=== PATIENT | female | born 1965 | race Caucasian/White ===

== ENCOUNTER 2016-09-18 17:00 | Outpatient (CLI) | payer OTHER, BC | END 2016-09-18 17:01 | disposition home or self-care (01) | DX: R53.83 Other fatigue (principal) ==

== ENCOUNTER 2016-11-05 14:28 | Outpatient (CLI) | payer OTHER, BC | END 2016-11-05 23:59 | DX: D51.9 Vitamin B12 deficiency anemia, unspecified (principal) ==

== ENCOUNTER 2016-11-29 10:50 | Outpatient (CLI) | payer OTHER, BC | END 2016-11-29 10:51 | disposition home or self-care (01) | DX: R53.83 Other fatigue (principal); D51.9 Vitamin B12 deficiency anemia, unspecified ==

== ENCOUNTER 2017-01-08 09:27 | Outpatient (CLI) | payer OTHER, BC | END 2017-01-08 09:28 | disposition home or self-care (01) | LOC: SC 09:27 | PROVIDERS: ATTEND Specialist | DX: G47.10 Hypersomnia, unspecified (principal); R06.83 Snoring; R53.83 Other fatigue; G47.00 Insomnia, unspecified | CPT/HCPCS: 99205; 99212 ==

== ENCOUNTER 2017-02-13 21:25 | Outpatient (CLI) | payer OTHER, BC | END 2017-02-13 21:26 | disposition home or self-care (01) | LOC: SC 21:25 | PROVIDERS: ATTEND Specialist | DX: G47.33 Obstructive sleep apnea (adult) (pediatric) (principal) | CPT/HCPCS: 95810 ==

== ENCOUNTER 2017-02-26 08:52 | Outpatient (CLI) | payer OTHER, BC | END 2017-02-26 08:53 | disposition home or self-care (01) | LOC: SC 08:52 | PROVIDERS: ATTEND Nurse Practitioner Family | DX: G47.33 Obstructive sleep apnea (adult) (pediatric) (principal) | CPT/HCPCS: 99212; 99214 ==

== ENCOUNTER 2017-03-28 22:05 | Outpatient (CLI) | payer OTHER, BC | END 2017-03-28 22:06 | disposition home or self-care (01) | LOC: SC 22:05 | PROVIDERS: ATTEND Specialist | DX: G47.33 Obstructive sleep apnea (adult) (pediatric) (principal) | CPT/HCPCS: 95811 ==

== ENCOUNTER 2017-04-03 10:20 | Outpatient (CLI) | payer OTHER, BC | END 2017-04-03 10:21 | disposition home or self-care (01) | LOC: SC 10:20 | PROVIDERS: ATTEND Nurse Practitioner Family | DX: G47.33 Obstructive sleep apnea (adult) (pediatric) (principal) | CPT/HCPCS: 99212; 99214 ==

== ENCOUNTER 2017-05-15 10:33 | Outpatient (CLI) | payer OTHER, BC | END 2017-05-15 10:34 | disposition home or self-care (01) | LOC: SC 10:33 | PROVIDERS: ATTEND Nurse Practitioner Family | DX: G47.33 Obstructive sleep apnea (adult) (pediatric) (principal) | CPT/HCPCS: 99212; 99214 ==

== ENCOUNTER 2017-06-25 09:57 | Outpatient (CLI) | payer OTHER, BC | END 2017-06-25 09:58 | disposition home or self-care (01) | LOC: SC 09:57 | PROVIDERS: ATTEND Nurse Practitioner Family | DX: G47.33 Obstructive sleep apnea (adult) (pediatric) (principal) | CPT/HCPCS: 99212; 99214 ==

== ENCOUNTER 2017-08-01 10:40 | Outpatient (CLI) | payer OTHER, BC | END 2017-08-01 10:41 | disposition home or self-care (01) | LOC: SC 10:40 | PROVIDERS: ATTEND Nurse Practitioner Family | DX: G47.33 Obstructive sleep apnea (adult) (pediatric) (principal) | CPT/HCPCS: 99212; 99214 ==

== ENCOUNTER 2017-08-14 08:00 | Outpatient (CLI) | payer OTHER, BC ==
[2017-08-14 19:27] LABS: ALBUMIN 4.5 g/dL (3.2-5.5); ALBUMIN/GLOBULIN RATIO 1.5 (1.0-2.2); ALKALINE PHOSPHATASE 64 IU/L (42-121); ALT ALANINE AMINOTRANSFERASE 57 IU/L (10-60); AST ASPARTATE AMINOTRANSFERASE 50 IU/L (10-42); BILIRUBIN,TOTAL 0.5 mg/dL (0.2-1.0); BUN - BLOOD UREA NITROGEN 18 mg/dL (6-20); CALCIUM 9.5 mg/dL (8.5-10.3); CARBON DIOXIDE - CO2 25 mmol/L (21-32); CHLORIDE 104 mmol/L (101-111); CHOL/HDL RATIO 5.2 (<4.4); CHOLESTEROL 192 mg/dL; CREATININE 0.8 mg/dL (0.4-1.0); GFR - MDRD 75 (>89); GLUCOSE 104 mg/dL (70-100); HDL CHOLESTEROL 37 mg/dL; LDL CHOLESTEROL,CALCULATED 109 mg/dL; LDL/HDL RATIO 2.9 (<4.4); SODIUM 137 mmol/L (135-145); TOTAL PROTEIN 7.5 g/dL (6.7-8.2); VLDL CHOLESTEROL 46 mg/dL
[2017-08-14 19:33] LABS: BASOPHILS # (AUTO) 0.1 10^3/uL (0.0-0.1); BASOPHILS % (AUTO) 1.2 %; EOSINOPHILS # (AUTO) 0.2 10^3/uL (0.0-0.7); EOSINOPHILS % (AUTO) 4.1 %; HGB - HEMOGLOBIN 14.7 g/dL (12.0-16.0); LYMPHOCYTES # (AUTO) 1.8 10^3/uL (1.5-3.5); LYMPHOCYTES % (AUTO) 35.5 %; MEAN CORPUSCULAR HEMOGLOBIN 30.5 pg (27.0-31.0); MEAN CORPUSCULAR HGB CONC 32.9 g/dL (32.0-36.0); MEAN CORPUSCULAR VOLUME 92.8 fL (81.0-99.0); MEAN PLATELET VOLUME 8.1 fL (7.9-10.8); MONOCYTES # (AUTO) 0.3 10^3/uL (0.0-1.0); MONOCYTES % (AUTO) 5.8 %; NEUTROPHILS # (AUTO) 2.7 10^3/uL (1.5-6.6); NEUTROPHILS % (AUTO) 53.4 %; PLT - PLATELET COUNT 241 10^3/uL (130-450); RED BLOOD COUNT 4.81 10^6/uL (4.20-5.40); RED CELL DISTRIBUTION WIDTH 13.4 % (12.0-15.0)
== END 2017-08-14 08:01 | disposition home or self-care (01) ==
LOC: LAB.WCP 08:00
PROVIDERS: ATTEND Physician Assistant Medical
DX: Z00.00 Encounter for general adult medical examination without abnormal findings (principal)
CPT/HCPCS: 36415; 80053; 80061; 83721; 84443; 85025

== ENCOUNTER 2017-11-07 08:52 | Outpatient (CLI) | payer OTHER, BC | END 2017-11-07 08:53 | disposition home or self-care (01) | LOC: SC 08:52 | PROVIDERS: ATTEND Nurse Practitioner Family | DX: G47.33 Obstructive sleep apnea (adult) (pediatric) (principal) | CPT/HCPCS: 99212; 99214 ==

== ENCOUNTER 2017-12-03 15:08 | Outpatient (CLI) | payer OTHER, BC ==
[2017-12-03 16:00] LABS: BASOPHILS # (AUTO) 0.1 10^3/uL (0.0-0.1); BASOPHILS % (AUTO) 1.1 %; EOSINOPHILS # (AUTO) 0.1 10^3/uL (0.0-0.7); EOSINOPHILS % (AUTO) 2.2 %; HGB - HEMOGLOBIN 14.7 g/dL (12.0-16.0); LYMPHOCYTES # (AUTO) 1.9 10^3/uL (1.5-3.5); LYMPHOCYTES % (AUTO) 31.8 %; MEAN CORPUSCULAR HEMOGLOBIN 30.7 pg (27.0-31.0); MEAN CORPUSCULAR HGB CONC 34.1 g/dL (32.0-36.0); MEAN CORPUSCULAR VOLUME 90.1 fL (81.0-99.0); MEAN PLATELET VOLUME 7.4 fL (7.9-10.8); MONOCYTES # (AUTO) 0.4 10^3/uL (0.0-1.0); NEUTROPHILS # (AUTO) 3.5 10^3/uL (1.5-6.6); NEUTROPHILS % (AUTO) 58.9 %; PLT - PLATELET COUNT 215 10^3/uL (130-450); RED BLOOD COUNT 4.79 10^6/uL (4.20-5.40); RED CELL DISTRIBUTION WIDTH 13.2 % (12.0-15.0)
[2017-12-03 16:08] LABS: ALBUMIN 4.5 g/dL (3.2-5.5); ALBUMIN/GLOBULIN RATIO 1.6 (1.0-2.2); BILIRUBIN,TOTAL 1.2 mg/dL (0.2-1.0); CALCIUM 9.3 mg/dL (8.5-10.3); CREATININE 0.8 mg/dL (0.4-1.0); TOTAL PROTEIN 7.3 g/dL (6.7-8.2)
--- NOTE | 2017-12-03 16:52 | CT Report ---
CT ABDOMEN AND PELVIS WITHOUT CONTRAST: 12/03/2017 CLINICAL INDICATION: Abdominal pain. TECHNIQUE: Axial CT images of the abdomen and pelvis were obtained without oral or intravenous contrast. COMPARISON: No previous CT is available. FINDINGS: Limited evaluation of the lung bases is unremarkable. ABDOMEN: The right kidney demonstrates a 4 mm calculus in the lower pole daniel. Mild hydronephrosis is present. The left kidney is unremarkable. The liver, spleen, pancreas and adrenal glands are unremarkable. The gallbladder is nondilated. No bowel dilatation, free gas, or free fluid is present. No abdominal adenopathy is seen. PELVIS: There is a 5 mm calcification in the expected course of the distal right ureter. No pelvic adenopathy or free fluid is present. The appendix is seen in the right lower quadrant, and is normal in caliber. Osseous structures demonstrate degenerative changes. IMPRESSION: A 5 MM CALCULUS IN THE DISTAL RIGHT URETER, WITH MILD HYDRONEPHROSIS, 4 MM CALCULUS IN THE RIGHT COLLECTING SYSTEM. NORMAL APPENDIX. CT DOSE REDUCTION STATEMENT In accordance with CT protocol optimization, one or more of the following dose reduction techniques were utilized for this exam: automated exposure control, adjustment of mA and/or KV based on patient size, or use of iterative reconstructive technique. TD: 12/03/2017 16:51
== END 2017-12-03 15:09 | disposition home or self-care (01) ==
LOC: DI 15:08
PROVIDERS: ATTEND Physician Assistant Medical
DX: N20.0 Calculus of kidney (principal); R10.9 Unspecified abdominal pain; E03.9 Hypothyroidism, unspecified
CPT/HCPCS: 36415; 74176; 80053; 84443; 85025

== ENCOUNTER 2018-02-13 17:30 | Outpatient (CLI) | payer OTHER, BC ==
[2018-02-13 17:56] LABS: CALCIUM 9.2 mg/dL (8.5-10.3); CREATININE 0.7 mg/dL (0.4-1.0)
== END 2018-02-13 17:31 | disposition home or self-care (01) ==
LOC: LAB 17:30
PROVIDERS: ATTEND Family Medicine
DX: N20.0 Calculus of kidney (principal)
CPT/HCPCS: 36415; 80048

== ENCOUNTER 2018-03-04 11:42 | Emergency (ER) | payer OTHER, BC ==
[2018-03-04 13:22] LABS: BILIRUBIN,URINE NEGATIVE (NEGATIVE); GLUCOSE, URINE (UA) NEGATIVE (NEGATIVE); KETONES,URINE (UA) NEGATIVE (NEGATIVE); LEUKOCYTE ESTERASE, URINE TRACE (NEGATIVE); NITRITE,URINE NEGATIVE (NEGATIVE); OCCULT BLOOD,URINE LARGE (NEGATIVE); PROTEIN,URINE 100 mg/dL (NEGATIVE); UROBILINOGEN,URINE 0.2 (NORMAL) E.U./dL (NORMAL)
[2018-03-04 13:34] LABS: CLARITY,URINE CLOUDY (CLEAR)
[2018-03-04 13:35] LABS: RBC,URINE TNTC /HPF (0-5); SQUAMOUS EPITHELIAL CELL,UR NONE SEEN (<= Few)
[2018-03-04 13:36] LABS: BACTERIA,URINE None Seen /HPF (None Seen)
[2018-03-04 14:04] LABS: BASOPHILS # (AUTO) 0.1 10^3/uL (0.0-0.1); BASOPHILS % (AUTO) 0.9 %; EOSINOPHILS % (AUTO) 0.2 %; HGB - HEMOGLOBIN 15.3 g/dL (12.0-16.0); LYMPHOCYTES # (AUTO) 2.2 10^3/uL (1.5-3.5); LYMPHOCYTES % (AUTO) 23.1 %; MEAN CORPUSCULAR HEMOGLOBIN 31.4 pg (27.0-31.0); MEAN CORPUSCULAR HGB CONC 34.6 g/dL (32.0-36.0); MEAN CORPUSCULAR VOLUME 90.9 fL (81.0-99.0); MEAN PLATELET VOLUME 7.3 fL (7.9-10.8); MONOCYTES # (AUTO) 0.6 10^3/uL (0.0-1.0); MONOCYTES % (AUTO) 6.1 %; NEUTROPHILS # (AUTO) 6.8 10^3/uL (1.5-6.6); NEUTROPHILS % (AUTO) 69.7 %; PLT - PLATELET COUNT 241 10^3/uL (130-450); RED BLOOD COUNT 4.87 10^6/uL (4.20-5.40); RED CELL DISTRIBUTION WIDTH 13.6 % (12.0-15.0); WHITE BLOOD COUNT 9.7 x10^3/uL (4.8-10.8)
--- NOTE | 2018-03-04 14:45 | ED Physician Documentation ---
PD HPI ABD PAIN - Stated complaint Stated Complaint: FEVER/SHAKE/CHILLS/POST OP - Chief complaint Chief Complaint: Abd Pain - History obtained from History obtained from: Patient - History of Present Illness Timing - onset: Last night (she had lithotripsy with stent placement and stone retrieval yesterday. Had some pain after. Having feeling of chills overnight and this morning, temp 99.9 earlier this morning. Called Urology office and referred to the ER.) Timing - duration: Hours Timing - details: Abrupt onset, Still present (still some feeling of chills) Quality: Cramping, Aching Location: RLQ Radiation: Right flank Associated symptoms: Fever, Nausea, Hematuria. No: Vomiting, Diarrhea, Dysuria Recently seen: Surgery (see above) Review of Systems Constitutional: reports: Fever, Chills, Myalgias Nose: denies: Rhinorrhea / runny nose, Congestion Throat: denies: Sore throat Respiratory: denies: Cough GI: reports: Nausea. denies: Vomiting, Diarrhea : reports: Hematuria. denies: Dysuria Skin: denies: Rash Neurologic: denies: Generalized weakness, Near syncope PD PAST MEDICAL HISTORY - Past Medical History Cardiovascular: None Respiratory: None Neuro: None Endocrine/Autoimmune: None : Kidney stones - Present Medications Home Medications: Ambulatory Orders Medication Instructions Recorded Confirmed Albuterol 03/04/18 Azelastine/Fluticasone [Dymista 03/04/[address] [place]] Cephalexin [Keflex] 500 mg PO QID #24 capsule 03/04/18 Epinephrine [Epipen 2-Kel] 03/04/18 Fluticasone [Flonase] 03/04/18 Levothyroxine Sodium 137 mcg 03/04/18 Naproxen [Naprosyn] 500 mg PO BID PRN #20 tablet 03/04/18 Ondansetron HCl [Zofran] 4 mg PO Q6H PRN #20 tablet 03/04/18 - Allergies Allergies/Adverse Reactions: Allergies Allergy/AdvReac Type Severity Reaction Status Date / Time erythromycin base Allergy Mild Nausea Verified 03/04/18 12:08 Penicillins Allergy Mild Rash Verified 03/04/18 12:08 red dye Allergy Mild Rash Verified 03/04/18 12:08 codeine AdvReac Severe Anaphylaxis Verified 03/04/18 12:07 iodine AdvReac Severe Anaphylaxis Verified 03/04/18 12:06 shellfish derived AdvReac Severe Anaphylaxis Verified 03/04/18 12:09 Sulfa (Sulfonamide AdvReac Severe Anaphylaxis Verified 03/04/18 12:07 Antibiotics) Tetanus Vaccines and Toxoid AdvReac Severe Anaphylaxis Verified 03/04/18 12:09 acetaminophen [From Percocet] AdvReac Unknown Verified 03/04/18 16:31 aspirin [From Percodan] AdvReac Unknown Verified 03/04/18 16:31 oxycodone [From Percocet] AdvReac Unknown Verified 03/04/18 16:31 PD ED PE NORMAL - Vitals Vital signs reviewed: Yes - General General: Alert and oriented X 3, Well developed/nourished - Neck Neck: Supple, no meningeal sign, No adenopathy - Cardiac Cardiac: RRR, No murmur - Respiratory Respiratory: Clear bilaterally - Abdomen Abdomen: Soft, Non tender - Female Female : Deferred - Rectal Rectal: Deferred - Back Back: Other (some right CVA tenderness) - Derm Derm: Normal color, Warm and dry - Neuro Neuro: Alert and oriented X 3, No motor deficit, Normal speech Results - Vitals Vitals: Vital Signs - 24 hr 03/04/18 03/04/18 12:02 16:33 Temperature 36.4 C L 36.4 C L Heart Rate 88 79 Respiratory 18 16 Rate Blood Pressure 123/74 137/107 H O2 Saturation 97 96 Oxygen O2 Source Room air - Labs Labs: Microbiology 03/04/18 12:52 Urine Culture - Final Urine,Clean Catch No growth Laboratory Tests 03/04/18 03/04/18 03/04/18 12:52 14:00 14:00 WBC 9.7 RBC 4.87 Hgb 15.3 Hct 44.3 MCV 90.9 MCH 31.4 H MCHC 34.6 RDW 13.6 Plt Count 241 MPV 7.3 L Neut # (Auto) 6.8 H Lymph # (Auto) 2.2 [place] # (Auto) 0.6 Eos # (Auto) 0.0 Baso # (Auto) 0.1 Absolute Nucleated RBC 0.01 Nucleated RBC % 0.1 Sodium 137 Potassium 4.0 Chloride 100 L Carbon Dioxide 26 Anion Gap 11.0 BUN 13 Creatinine 0.7 Estimated GFR (MDRD) 88 L Glucose 120 H Lactic Acid Calcium 9.5 Total Bilirubin 1.4 H AST 60 H ALT 76 H Alkaline Phosphatase 83 Total Protein 7.9 Albumin 4.6 Globulin 3.3 Albumin/Globulin Ratio 1.4 Lipase 30 Urine Color BROWN Urine Clarity CLOUDY Urine pH 6.0 Ur Specific [place] 1.015 Urine Protein 100 H Urine Glucose (UA) NEGATIVE Urine Ketones NEGATIVE Urine Occult Blood LARGE H Urine Nitrite NEGATIVE Urine Bilirubin NEGATIVE Urine Urobilinogen 0.2 (NORMAL) Ur Leukocyte Esterase TRACE H Urine RBC TNTC H Urine WBC 0-3 Ur Squamous Epith Cells NONE SEEN Urine Bacteria None Seen Ur Microscopic Review INDICATED Urine Culture Comments INDICATED 03/04/18 14:00 WBC RBC Hgb Hct MCV MCH MCHC RDW Plt Count MPV Neut # (Auto) Lymph # (Auto) [place] # (Auto) Eos # (Auto) Baso # (Auto) Absolute Nucleated RBC Nucleated RBC % Sodium Potassium Chloride Carbon Dioxide Anion Gap BUN Creatinine Estimated GFR (MDRD) Glucose Lactic Acid 1.5 Calcium Total Bilirubin AST ALT Alkaline Phosphatase Total Protein Albumin Globulin Albumin/Globulin Ratio Lipase Urine Color Urine Clarity Urine pH Ur Specific [place] Urine Protein Urine Glucose (UA) Urine Ketones Urine Occult Blood Urine Nitrite Urine Bilirubin Urine Urobilinogen Ur Leukocyte Esterase Urine RBC Urine WBC Ur Squamous Epith Cells Urine Bacteria Ur Microscopic Review Urine Culture Comments PD MEDICAL DECISION MAKING - ED course Complexity details: reviewed results, considered differential, d/w patient, d/w [facility] consultant (talked with Urologist (relayed through his mailing machine assistant as was in procedure) - okay with lab results, no imaging requested, and to cover with abx for possible kidney infection. ) - Sepsis Event Vital Signs: Vital Signs - 24 hr 03/04/18 03/04/18 12:02 16:33 Temperature 36.4 C L 36.4 C L Heart Rate 88 79 Respiratory 18 16 Rate Blood Pressure 123/74 137/107 H O2 Saturation 97 96 Oxygen O2 Source Room air Departure - Departure Disposition: 01 Home, Self Care Clinical Impression: Fever and chills, History of lithotripsy Condition: Stable Record reviewed to determine appropriate education?: Yes Follow-Up: Selena Costello PA-C [Primary Care Provider] - Rafia Cheng MD [Physician No Access] - Prescriptions: Cephalexin [Keflex] 500 mg PO QID #24 capsule Naproxen [Naprosyn] 500 mg PO BID PRN #20 tablet PRN Reason: Pain Ondansetron HCl [Zofran] 4 mg PO Q6H PRN #20 tablet PRN Reason: Nausea / Vomiting Comments: Drink lots of fluids. Cephalexin antibiotic 4 times a day for the next 5 or 6 days. Naproxen twice daily for inflammation and pain. Ondansetron if needed for nausea. Follow-up with urologist in the next 2-3 days if persisting fevers or chills feeling. Discharge Date/Time: 03/04/18 16:35
[2018-03-04 14:48] LABS: ALBUMIN 4.6 g/dL (3.2-5.5); ALBUMIN/GLOBULIN RATIO 1.4 (1.0-2.2); BILIRUBIN,TOTAL 1.4 mg/dL (0.2-1.0); CALCIUM 9.5 mg/dL (8.5-10.3); CREATININE 0.7 mg/dL (0.4-1.0); TOTAL PROTEIN 7.9 g/dL (6.7-8.2)
[2018-03-04] MEDS ORDERED: HYDROmorphone 1 MG/ML CARPUJECT IM STA (15:02)
[2018-03-04] MEDS ORDERED: ONDANSETRON ODT 4 MG TABLET TL STA (15:03)
[2018-03-04] MEDS ORDERED: KETOROLAC 30 MG/ML VIAL IM STA (15:03)
[2018-03-04] MEDS ORDERED: cephALEXin 250 MG CAPSULE PO STA (16:13)
[2018-03-04 16:34] VITALS: BP 137/107
== END 2018-03-04 16:35 | disposition home or self-care (01) ==
LOC: ED 11:42
DX: R50.9 Fever, unspecified (principal); R11.0 Nausea; Z98.890 Other specified postprocedural states
CPT/HCPCS: 36415; 80053; 81001; 83605; 83690; 85025; 87086; 96372; 99283; A9270; J1170; Q0162; 81003

== ENCOUNTER 2018-03-17 10:33 | Emergency (ER) | payer OTHER, BC ==
[2018-03-17 10:57] LABS: BILIRUBIN,URINE NEGATIVE (NEGATIVE); GLUCOSE, URINE (UA) NEGATIVE (NEGATIVE); KETONES,URINE (UA) NEGATIVE (NEGATIVE); LEUKOCYTE ESTERASE, URINE TRACE (NEGATIVE); NITRITE,URINE NEGATIVE (NEGATIVE); OCCULT BLOOD,URINE LARGE (NEGATIVE); PH,URINE 5.5 PH (5.0-7.5); PROTEIN,URINE >=300 mg/dL (NEGATIVE); UROBILINOGEN,URINE 0.2 (NORMAL) E.U./dL (NORMAL)
[2018-03-17 11:41] LABS: CLARITY,URINE CLEAR (CLEAR)
[2018-03-17 11:42] LABS: BACTERIA,URINE Few /HPF (None Seen); RBC,URINE TNTC /HPF (0-5); SQUAMOUS EPITHELIAL CELL,UR FEW Squamous (<= Few)
--- NOTE | 2018-03-17 11:44 | ED Physician Documentation ---
PD HPI ABD PAIN - Stated complaint Stated Complaint: SIDE PX - Chief complaint Chief Complaint: Abd Pain - History obtained from History obtained from: Patient - History of Present Illness Timing - onset: Today Timing - details: Abrupt onset Quality: Cramping, Aching, Pain Location: RLQ Radiation: Right flank Improved by: No: Eating Worsened by: Position (lying flat). No: Eating, Breathing, Palpation Associated symptoms: Nausea, Hematuria (since lithotripsy). No: Fever, Vomiting , Chest pain, Near syncope / syncope Recently seen: Surgery (had cystoscopy with stent removal this morning by Urology.) Review of Systems Constitutional: denies: Fever, Chills, Myalgias Nose: denies: Rhinorrhea / runny nose, Congestion Throat: denies: Sore throat Cardiac: denies: Chest pain / pressure Respiratory: denies: Cough GI: reports: Abdominal Pain, Nausea. denies: Vomiting, Diarrhea : reports: Hematuria. denies: Dysuria, Frequency Skin: denies: Rash, Lesions PD PAST MEDICAL HISTORY - Past Medical History Cardiovascular: None Respiratory: None Neuro: None Endocrine/Autoimmune: None : Kidney stones - Past Surgical History Past Surgical History: Yes /SCIENTIFIC GLASS BLOWER: section, Hysterectomy - Present Medications Home Medications: Ambulatory Orders Medication Instructions Recorded Confirmed Albuterol 03/04/18 Azelastine/Fluticasone [Dymista 03/04/18 Nasal [place]] Cephalexin [Keflex] 500 mg PO QID #24 capsule 03/04/18 Epinephrine [Epipen 2-Kel] 03/04/18 Fluticasone [Flonase] 03/04/18 Levothyroxine Sodium 137 mcg 03/04/18 Naproxen [Naprosyn] 500 mg PO BID PRN #20 tablet 03/04/18 Ondansetron HCl [Zofran] 4 mg PO Q6H PRN #20 tablet 03/04/18 Dexamethasone [Decadron] 4 mg PO DAILY #5 tablet 03/17/18 HYDROcod/ACETAM 5/325 [[place]ilot 5/325] 1 tab PO Q6H PRN #25 tablet 03/17/18 Naproxen 375 mg PO BID #20 tablet 03/17/18 - Allergies Allergies/Adverse Reactions: Allergies Allergy/AdvReac Type Severity Reaction Status Date / Time erythromycin base Allergy Mild Nausea Verified 03/17/18 10:44 Penicillins Allergy Mild Rash Verified 03/17/18 10:44 red dye Allergy Mild Rash Verified 03/17/18 10:44 codeine AdvReac Severe Anaphylaxis Verified 03/17/18 10:44 iodine AdvReac Severe Anaphylaxis Verified 03/17/18 10:44 shellfish derived AdvReac Severe Anaphylaxis Verified 03/17/18 10:44 Sulfa (Sulfonamide AdvReac Severe Anaphylaxis Verified 03/17/18 10:44 Antibiotics) Tetanus Vaccines and Toxoid AdvReac Severe Anaphylaxis Verified 03/17/18 10:44 acetaminophen [From Percocet] AdvReac Unknown Verified 03/17/18 10:44 aspirin [From Percodan] AdvReac Unknown Verified 03/17/18 10:44 oxycodone [From Percocet] AdvReac Unknown Verified 03/17/18 10:44 - Social History Does the pt smoke?: No Smoking Status: Never smoker Does the pt drink ETOH?: Yes Does the pt have substance abuse?: No - Immunizations Immunizations are current?: Yes PD ED PE NORMAL - Vitals Vital signs reviewed: Yes - General General: Alert and oriented X 3, Well developed/nourished, Other (appears in pain) - Neck Neck: Supple, no meningeal sign, No adenopathy - Cardiac Cardiac: RRR, No murmur - Respiratory Respiratory: Clear bilaterally - Abdomen Abdomen: Normal bowel sounds, Soft, Non distended, No organomegaly, Other (mild tender RLQ area without guarding nor percussion tender. ) - Female Female : Deferred - Rectal Rectal: Deferred - Back Back: Other (some right CVA tenderness. ) - Derm Derm: Normal color, Warm and dry, No rash - Extremities Extremities: No tenderness to palpate, Normal ROM s pain, No edema, No calf tenderness / cord - Neuro Neuro: Alert and oriented X 3, No motor deficit, Normal speech Results - Vitals Vitals: Vital Signs - 24 hr 03/17/18 03/17/18 03/17/18 10:38 15:58 16:01 Temperature 36 C L 36.2 C L Heart Rate 92 88 Respiratory 22 15 Rate Blood Pressure 136/47 H 132/60 H O2 Saturation 94 98 Oxygen O2 Source Room air - Labs Labs: Laboratory Tests 03/17/18 10:45 Urine Color DARK YELLOW Urine Clarity CLEAR Urine pH 5.5 Ur Specific [place] >=1.030 H Urine Protein >=300 H Urine Glucose (UA) NEGATIVE Urine Ketones NEGATIVE Urine Occult Blood LARGE H Urine Nitrite NEGATIVE Urine Bilirubin NEGATIVE Urine Urobilinogen 0.2 (NORMAL) Ur Leukocyte Esterase TRACE H Urine RBC TNTC H Urine WBC 6-10 H Ur Squamous Epith Cells FEW Squamous Urine Bacteria Few Ur Microscopic Review INDICATED Urine Culture Comments INDICATED - Rads (name of study) abd CT Radiology: Prelim report reviewed (hydro ureter and nephrosis mild. No stone. No free fluid. Appendix normal. Diverticula without diverticulitis. ) PD MEDICAL DECISION MAKING - ED course Complexity details: reviewed results (no stones. has some hydroureter and hydronephrosis. Given hematuria and recent stent removal, consider ureteral spasm or possibly ureteral clot causing upstream pressure. I would presume either of these to resolve with some time. ), re-evaluated patient (pain improved with IV meds. ), considered differential, d/w patient - Sepsis Event Vital Signs: Vital Signs - 24 hr 03/17/18 03/17/18 03/17/18 10:38 15:58 16:01 Temperature 36 C L 36.2 C L Heart Rate 92 88 Respiratory 22 15 Rate Blood Pressure 136/47 H 132/60 H O2 Saturation 94 98 Oxygen O2 Source Room air Departure - Departure Disposition: 01 Home, Self Care Clinical Impression: Right sided abdominal pain, Hydroureter Condition: Stable Record reviewed to determine appropriate education?: Yes Follow-Up: Selena Costello PA-C [Primary Care Provider] - Rafia Cheng MD [Physician No Access] - Prescriptions: Dexamethasone [Decadron] 4 mg PO DAILY #5 tablet HYDROcod/ACETAM 5/325 [[place] 5/325] 1 tab PO Q6H PRN #25 tablet PRN Reason: Pain Naproxen 375 mg PO BID #20 tablet Comments: Drink lots of fluids. Naproxen and Decadron anti-inflammatories for presumption of irritation and inflammation of the ureter. Add Percocet if needed for pain. Follow-up with urology if not improved over the next day or 2. Discharge Date/Time: 03/17/18 16:02
[2018-03-17] MEDS ORDERED: KETOROLAC 15 MG/ML VIAL IVP STA (12:16)
[2018-03-17] MEDS ORDERED: ONDANSETRON 4 MG/2 ML VIAL IVP STA (12:16)
[2018-03-17] MEDS ORDERED: HYDROmorphone 1 MG/ML CARPUJECT IVP STA ×2 (12:16→14:56)
[2018-03-17] MEDS ORDERED: IOPAMIDOL-300 100 ML VIAL ONE (12:48)
--- NOTE | 2018-03-17 14:19 | CT Report ---
Procedure Date: 03/17/2018 Accession Number: [id number] / [id number] Procedure: CT - Abdomen/Pelvis W/O CPT Code: FULL RESULT: EXAM: CT ABDOMEN AND PELVIS (CT KUB) EXAM DATE: 03/17/2018 01:10 PM. CLINICAL HISTORY: Lower right pain; stent removal recent; history of stones. COMPARISONS: 12/03/2014. TECHNIQUE: Routine axial helical CT imaging was performed through the abdomen and pelvis without IV contrast. Reconstructions: Coronal and sagittal. In accordance with CT protocol optimization, one or more of the following dose reduction techniques were utilized for this exam: automated exposure control, adjustment of mA and/or KV based on patient size, or use of iterative reconstructive technique. FINDINGS: Lung Bases: Right lower lobe subsegmental atelectasis. Otherwise, lung bases are clear. No pleural or pericardial effusions. No cardiac enlargement. Small hiatal hernia noted. Right Kidney/Ureter: No renal mass or stone. Mild right hydroureteronephrosis and perinephric stranding. No obstructing ureteral stone or ureteral lesion is noted. No ureteral stent is noted. Left Kidney/Ureter: No stones, hydronephrosis, or hydroureter. No perinephric fat stranding. Other Solid Organs: Enlarged fatty liver with focal fatty sparing near the gallbladder fossa. No mass. Normal pancreas, gallbladder, adrenal glands and spleen. Gallbladder/Bile Ducts: See above. Peritoneal Cavity: No free fluid, free air or marcial adenopathy. Bowel is grossly unremarkable. There are multiple diverticula seen which most severely affect the sigmoid colon. No wall thickening or adjacent inflammation seen. No obstruction noted. The appendix is well visualized and normal. Pelvic Organs: Air is present in nondependent portions of the bladder. Uterus is absent. No bladder stones or wall thickening. Noncontrast images of the visualized pelvic organs are unremarkable. Vasculature: Unremarkable. Other: None. IMPRESSION: 1. Mild right hydroureteronephrosis and perinephric stranding. No obstructing ureteral stone or contour deforming mass on this noncontrast CT. 2. No left renal mass, stones or hydronephrosis. 3. Diverticulosis. Normal appendix. No inflammation or obstruction. 4. Fatty liver. Hepatomegaly. No mass. RADIA
[2018-03-17] MEDS ORDERED: DEXAMETHASONE 10 MG/ML VIAL IVP STA (14:56)
[2018-03-17 16:01] VITALS: BP 132/60
== END 2018-03-17 16:02 | disposition home or self-care (01) ==
LOC: ED 10:33
DX: N13.4 Hydroureter (principal)
CPT/HCPCS: 74176; 81001; 87086; 96374; 96375; 96376; 99284; J1170; 81003

== ENCOUNTER → 2018-03-26 | Outpatient (CLI) | payer OTHER, BC ==
[2018-03-26 18:54] LABS: CALCIUM 8.6 mg/dL (8.5-10.3); CREATININE 0.7 mg/dL (0.4-1.0)
== END ==
LOC: LAB.WCP 08:00
PROVIDERS: ATTEND Physician Assistant Medical
DX: N20.0 Calculus of kidney (principal); E03.9 Hypothyroidism, unspecified
CPT/HCPCS: 36415; 80048; 84443

== ENCOUNTER 2018-03-28 14:00 | Outpatient (CLI) | payer OTHER, BC ==
[2018-03-28 18:49] LABS: HB2 TOTAL 15.2 g/dL; HEMOGLOBIN A1C 0.81 g/dL
== END 2018-03-28 14:01 | disposition home or self-care (01) ==
LOC: LAB.WCP 14:00
PROVIDERS: ATTEND Physician Assistant Medical
DX: Z13.1 Encounter for screening for diabetes mellitus (principal)
CPT/HCPCS: 36415; 83036

== ENCOUNTER → 2018-06-16 | Outpatient (CLI) | payer OTHER, BC ==
[2018-06-16 17:08] LABS: ALBUMIN 4.4 g/dL (3.2-5.5); ALBUMIN/GLOBULIN RATIO 1.6 (1.0-2.2); ALKALINE PHOSPHATASE 49 IU/L (42-121); ALT ALANINE AMINOTRANSFERASE 35 IU/L (10-60); AST ASPARTATE AMINOTRANSFERASE 31 IU/L (10-42); BILIRUBIN,TOTAL 0.8 mg/dL (0.2-1.0); BUN - BLOOD UREA NITROGEN 17 mg/dL (6-20); CALCIUM 9.4 mg/dL (8.5-10.3); CARBON DIOXIDE - CO2 24 mmol/L (21-32); CHLORIDE 106 mmol/L (101-111); CHOL/HDL RATIO 4.6 (<4.4); CHOLESTEROL 176 mg/dL; CREATININE 0.3 mg/dL (0.4-1.0); GFR - MDRD 233 (>89); GLUCOSE 113 mg/dL (70-100); HDL CHOLESTEROL 38 mg/dL; LDL CHOLESTEROL,CALCULATED 106 mg/dL; LDL/HDL RATIO 2.8 (<4.4); SODIUM 138 mmol/L (135-145); TOTAL PROTEIN 7.1 g/dL (6.7-8.2); VLDL CHOLESTEROL 32 mg/dL
[2018-06-16 17:17] LABS: THYROID STIMULATING HORMONE < 0.08 uIU/mL (0.34-5.60)
[2018-06-16 17:31] LABS: HB2 TOTAL 17.1 g/dL; HEMOGLOBIN A1C 0.56 g/dL; HEMOGLOBIN A1C % 5.1 % (4.6-6.2)
== END ==
LOC: LAB.WCP 09:04
PROVIDERS: ATTEND Physician Assistant Medical
DX: E11.9 Type 2 diabetes mellitus without complications (principal); D51.9 Vitamin B12 deficiency anemia, unspecified; E03.9 Hypothyroidism, unspecified
CPT/HCPCS: 36415; 80053; 80061; 82607; 83036; 83721; 84443

== ENCOUNTER 2018-08-04 11:33 | Outpatient (CLI) | payer BC | END 2018-08-04 11:34 | LOC: LAB.WCP 11:33 | PROVIDERS: ATTEND Physician Assistant Medical | DX: E03.9 Hypothyroidism, unspecified (principal) | CPT/HCPCS: 36415; 84443 ==

== ENCOUNTER 2018-10-30 08:00 | Outpatient (CLI) | payer BC, OTHER | END 2018-10-30 23:59 | disposition home or self-care (01) | LOC: LAB.WCP 08:00 | PROVIDERS: ATTEND Physician Assistant Medical | DX: M79.644 Pain in right finger(s) (principal) | CPT/HCPCS: 36415; 84550 ==

== ENCOUNTER 2018-12-16 07:29 | Outpatient (CLI) | payer BC | END 2018-12-16 07:30 | disposition home or self-care (01) | LOC: LAB 07:29 | PROVIDERS: ATTEND Physician Assistant Medical | DX: E03.9 Hypothyroidism, unspecified (principal); M79.645 Pain in left finger(s) | CPT/HCPCS: 36415; 84443; 84550 ==

== ENCOUNTER 2019-01-16 13:05 | Outpatient (CLI) | payer BC ==
--- NOTE | 2019-01-19 08:21 | Mammography Report ---
Reason: SCREENING FOR MLIG NEOP,BREAST,NOS Procedure Date: 01/16/2019 Accession Number: [id number] / [id number] Procedure: HYACINTH - Screening Mammo w/Wm CPT Code: FULL RESULT: EXAM: Screening Mammo w/Wm DATE: 01/16/2019 2:01 PM CLINICAL HISTORY: Screening encounter. History of early menses. TECHNIQUE: (B) - Bilateral CC and MLO views were obtained. COMPARISON: 07/01/2015 through 11/16/2010. PARENCHYMAL PATTERN: (D) - The breast(s) demonstrate(s) heterogeneously dense fibroglandular parenchyma. FINDINGS: In the right retroareolar upper outer breast 2.4 cm from the nipple, best seen on right 3-D cc image 33 and right MLO image 29 is a partially obscured 0.7 cm nodule possibly with calcifications which requires additional spot magnification views as well as ultrasound clarification. There are no suspicious masses, calcifications, or areas of distortion in the left breast. IMPRESSION: Incomplete examination. BI-RADS category 0. RECOMMENDATION: (ADDMU) - Additional views using both Mammography and Ultrasound recommended. Right upper outer quadrant retroareolar breast spot magnification views and ultrasound. BI-RADS CATEGORY: (0) - Incomplete Examination - need additional evaluation. STANDARD QUALIFYING STATEMENTS: 1. This examination was not reviewed with the aid of Computer-Aided Detection (CAD). 2. A negative or benign imaging report should not preclude biopsy if clinically suspicious findings are present. 3. Dense breasts may obscure an underlying neoplasm. 4. This examination was reviewed with the aid of 3D breast imaging (tomosynthesis).
== END 2019-01-16 13:06 | disposition home or self-care (01) ==
LOC: DI 13:05
PROVIDERS: ATTEND Physician Assistant Medical
DX: Z12.31 Encounter for screening mammogram for malignant neoplasm of breast (principal); R92.8 Other abnormal and inconclusive findings on diagnostic imaging of breast
CPT/HCPCS: 77063; 77067

== ENCOUNTER 2019-02-04 10:44 | Outpatient (CLI) | payer BC ==
--- NOTE | 2019-02-04 16:43 | Mammography Report ---
Reason: ABNORMAL MAMMOGRAM Procedure Date: 02/04/2019 Accession Number: [id number] / [id number] Procedure: HYACINTH - Diag Special Views Dig RT CPT Code: FULL RESULT: EXAM: Diag Special Views Dig RT DATE: 02/04/2019 11:37 AM CLINICAL HISTORY: History of early menses. The diagnostic examination. The patient is recalled from screening for suggestion of nodules on screening mammogram. TECHNIQUE: (R) - Right right ML, spot magnified ML and spot magnified CC views are obtained. Focused right breast ultrasound is performed. COMPARISON: 01/16/2019 through 11/16/2010. PARENCHYMAL PATTERN: (D) - The breast(s) demonstrate(s) heterogeneously dense fibroglandular parenchyma. FINDINGS: The finding on screening mammogram is redemonstrated with no suspicious calcifications demonstrated. Focused right breast ultrasound demonstrates a gently lobulated wider than tall subcentimeter cyst with debris 2 cm from the nipple at the 10/11:00 position, typically benign. There are no suspicious masses, calcifications, or areas of distortion. IMPRESSION: Benign findings. BI-RADS category 2. RECOMMENDATION: (ANNUAL) - Recommend routine annual screening mammography. BI-RADS CATEGORY: (2) - Benign Findings. STANDARD QUALIFYING STATEMENTS: 1. This examination was not reviewed with the aid of Computer-Aided Detection (CAD). 2. A negative or benign imaging report should not preclude biopsy if clinically suspicious findings are present. 3. Dense breasts may obscure an underlying neoplasm. 4. This examination was reviewed with the aid of 3D breast imaging (tomosynthesis).
== END 2019-02-04 10:45 | disposition home or self-care (01) ==
LOC: DI 10:44
PROVIDERS: ATTEND Physician Assistant Medical
DX: N60.01 Solitary cyst of right breast (principal); R92.8 Other abnormal and inconclusive findings on diagnostic imaging of breast
CPT/HCPCS: 76642

== ENCOUNTER 2019-05-20 15:48 | Outpatient (CLI) | payer BC ==
[2019-05-20 16:38] VITALS: BP 118/80
--- NOTE | 2019-05-20 16:38 | SLEEP CARE CONSULTATION ---
Information from patient questionnaire entered by Azul Campbell. I have reviewed and concur with the information entered by Azul Campbell. This document represents the service I personally performed and the decisions made by me, Senia Hernandez, RN, MSN, PUBLIC [employer]ATIONS PROFESSIONAL. History of Present Illness Previous diagnosis: Very Severe, Obstructive Sleep Apnea-Hypopnea Syndrome AHI: 89.7 Reason for CPAP/BiPAP follow up: annual Equipment type: CPAP Equipment obtained from: [employer] Mask style: Full face (Air Touch) Mask brand: Resmed Backup mask available: No (keep current mask when replaced for spare) Last cushion change: 2 months ago HPI additional information: She bought the So Clean device to clean Air Touch mask better and the device . This has resolved skin irritation that cloth barriers could not. CPAP Compliance Data - Data Reviewed with Patient Average duration of nightly device use: 9.7 Compliance rate %: 100 (180 days - uses while reads in bed before sleep. ) Current pressure setting (cmH2O): 10-12 Humidity settin Heated hose settin Average residual AHI: 1.2 Average large leak: 10 min 45 sec Subjective Patient concerns: reports: condensation in mask/hose (rare - adjusts humidity and has a hose hernadez), dry mouth, nose, throat (throat due to thryoid tumore), epistaxis (rare from nasal medication and stopped medication for healing. sees ENT). denies: aerophagia, mask discomfort, air blowing in eyes, mask leak noise, nasal congestion Observed to snore while using device: No Current pressure setting perceived as: comfortable On therapy, patient: reports: sleeping better, awakening more refreshed, being more awake and alert during the day, more rested overall. denies: drowsiness while driving Initial [place] Sleepiness Scale score: 17 Current [place] Sleepiness Scale score: 7 Allergies and Home Medications Known drug allergies: Yes (see list ) Allergy and home medication list: Fluticasone Propionate 50MCG/ACT Two sprays each nostril twice daily Synthroid 88mcg tab one daily Vitamin D 1000unit tab five daily Epipen 2-Kel 0.3MG/0.3ML Inject 0.3ml in case of emergency Azelastine HCL 137 MCG/SPRAY SOLN Inhale one two sprays each nostril daily Triamcinolone Acetonide 0.1% Cream Apply to affected areas twice daily PRN Benadryl 25mg tab one daily as needed Tums Tab one daily Review of Systems Review of systems same as previous: No (Rash with new thyoid med additive - but lost 40 pounds and regained) Physical Exam Blood Pressure: 118/80 Cuff size: long Heart Rate: 82 O2 Saturation: 98 Height: 5 ft 7.5 in Weight: 285 lb 12.8 oz Body Mass Index: 44.1 BMI Classification: Obesity Class 3 Nasal exam: positive: erythema (mild right ) Impression and Plan 1. Obstructive Sleep Apnea-Hypopnea Syndrome, very severe , with good treatment compliance and good apnea control. On CPAP therapy, the patient has better sleep quality and is more rested overall. For nasal irritation, she was given a sample of Kalin Ease nasal cream to try to see if better then current nasal gel. She can also adjust the humdity higher. Since patient is hoping to lose weight again, I discussed how significant weight loss can reduce her apnea risk and CPAP pressure requirements. Symptoms to report for needed pressure adjustment discus sed. She is advised to follow up with PCP to discuss weight concerns and options such as diet modification / bariatric surgery. Patient has appointment next month. Patient's apnea severity and rationale for treatment to reduce apnea, improve sleep quality and reduce cardiovascular and cerebrovascular events was reviewed. * Continue CPAP pressure at 10-12 cmH2O * update supplies * Kalin Ease nasal cream * Follow up with PCP re weight concerns * Notify me if snoring with mask or feeling that the pressure is too much or too little * Attempt to lose weight * Return for follow up in 1 year , or sooner if concerns arise I spent 100% of this 30 minute visit face to face with the patient with greater than 50% of this was spent time counseling the patient and coordination of care.
== END 2019-05-20 15:49 | disposition home or self-care (01) ==
LOC: SC 15:48
PROVIDERS: ATTEND Nurse Practitioner Family
DX: G47.33 Obstructive sleep apnea (adult) (pediatric) (principal)
CPT/HCPCS: 99212; 99214

== ENCOUNTER 2019-06-16 08:08 | Outpatient (CLI) | payer BC ==
[2019-06-16 08:45] LABS: BASOPHILS # (AUTO) 0.1 10^3/uL (0.0-0.1); BASOPHILS % (AUTO) 1.3 %; EOSINOPHILS # (AUTO) 0.3 10^3/uL (0.0-0.7); EOSINOPHILS % (AUTO) 4.8 %; LYMPHOCYTES # (AUTO) 1.9 10^3/uL (1.5-3.5); LYMPHOCYTES % (AUTO) 36.2 %; MEAN CORPUSCULAR HEMOGLOBIN 29.8 pg (27.0-31.0); MEAN CORPUSCULAR HGB CONC 32.3 g/dL (32.0-36.0); MEAN CORPUSCULAR VOLUME 92.1 fL (81.0-99.0); MEAN PLATELET VOLUME 9.2 fL (7.9-10.8); MONOCYTES # (AUTO) 0.4 10^3/uL (0.0-1.0); MONOCYTES % (AUTO) 7.5 %; NEUTROPHILS # (AUTO) 2.6 10^3/uL (1.5-6.6); NEUTROPHILS % (AUTO) 49.8 %; PLT - PLATELET COUNT 252 10^3/uL (130-450); RED BLOOD COUNT 5.04 10^6/uL (4.20-5.40); RED CELL DISTRIBUTION WIDTH 13.1 % (12.0-15.0); WHITE BLOOD COUNT 5.2 x10^3/uL (4.8-10.8)
[2019-06-16 08:57] LABS: HB2 TOTAL 15.4 g/dL; HEMOGLOBIN A1C 0.69 g/dL; HEMOGLOBIN A1C % 6.3 % (4.6-6.2)
[2019-06-16 09:35] LABS: ALBUMIN 4.7 g/dL (3.2-5.5); ALBUMIN/GLOBULIN RATIO 1.6 (1.0-2.2); ALKALINE PHOSPHATASE 68 IU/L (42-121); ALT ALANINE AMINOTRANSFERASE 47 IU/L (10-60); AST ASPARTATE AMINOTRANSFERASE 36 IU/L (10-42); BILIRUBIN,TOTAL 0.8 mg/dL (0.2-1.0); BUN - BLOOD UREA NITROGEN 15 mg/dL (6-20); CALCIUM 9.2 mg/dL (8.5-10.3); CARBON DIOXIDE - CO2 25 mmol/L (21-32); CHLORIDE 104 mmol/L (101-111); CHOL/HDL RATIO 5.4 (<4.4); CHOLESTEROL 247 mg/dL; CREATININE 0.8 mg/dL (0.4-1.0); GFR - MDRD 75 (>89); GLUCOSE 120 mg/dL (70-100); HDL CHOLESTEROL 46 mg/dL; LDL CHOLESTEROL,CALCULATED 143 mg/dL; LDL/HDL RATIO 3.1 (<4.4); SODIUM 138 mmol/L (135-145); TOTAL PROTEIN 7.6 g/dL (6.7-8.2); VLDL CHOLESTEROL 58 mg/dL
== END 2019-06-16 08:09 | disposition home or self-care (01) ==
LOC: LAB 08:08
PROVIDERS: ATTEND Physician Assistant Medical
DX: Z00.00 Encounter for general adult medical examination without abnormal findings (principal); E11.9 Type 2 diabetes mellitus without complications; E03.9 Hypothyroidism, unspecified; D50.9 Iron deficiency anemia, unspecified
CPT/HCPCS: 36415; 80053; 80061; 83036; 83721; 84443; 85025

== ENCOUNTER 2019-06-26 12:55 | Outpatient (CLI) | payer BC ==
--- NOTE | 2019-06-26 14:55 | Ultrasound Report ---
Reason: BONE SOFT TISSUE AND SKIN NEOPLASM Procedure Date: 06/26/2019 Accession Number: [id number] / [id number] Procedure: US - Chest CPT Code: Final Report FULL RESULT: EXAM: EXAM DATE: 06/26/2019 02:11 PM. CLINICAL HISTORY: BONE SOFT TISSUE AND SKIN NEOPLASM. COMPARISON: None. TECHNIQUE: Limited grayscale ultrasound performed to the area of concern in the right lower back. FINDINGS: Limited ultrasound through right posteroinferior abdominal wall/back, demonstrated no discernible abnormality. Normal subcutaneous fat noted at the site of concern IMPRESSION: No abnormality detected. RADIA
== END 2019-06-26 12:56 | disposition home or self-care (01) ==
LOC: DI 12:55
PROVIDERS: ATTEND Physician Assistant Medical
DX: D49.2 Neoplasm of unspecified behavior of bone, soft tissue, and skin (principal)
CPT/HCPCS: 76604

== ENCOUNTER 2019-11-11 16:36 | Outpatient (CLI) | payer BC | END 2019-11-11 16:37 | disposition home or self-care (01) | LOC: COV 16:36 | PROVIDERS: ATTEND Family Medicine | DX: U07.1 COVID-19 (principal) | CPT/HCPCS: 81599 ==

== ENCOUNTER 2019-12-23 10:34 | Outpatient (CLI) | payer BC ==
[2019-12-23 11:18] LABS: CALCIUM 9.5 mg/dL (8.5-10.3); CREATININE 0.8 mg/dL (0.4-1.0)
[2019-12-23 11:28] LABS: HB2 TOTAL 17.1 g/dL; HEMOGLOBIN A1C 0.83 g/dL; HEMOGLOBIN A1C % 6.6 % (4.6-6.2)
== END 2019-12-23 10:35 | disposition home or self-care (01) ==
LOC: LAB 10:34
PROVIDERS: ATTEND Physician Assistant Medical
DX: E11.9 Type 2 diabetes mellitus without complications (principal); E03.9 Hypothyroidism, unspecified; E55.9 Vitamin D deficiency, unspecified
CPT/HCPCS: 36415; 80048; 82306; 83036; 84443

== ENCOUNTER 2020-04-19 11:04 | Outpatient (CLI) | payer BC ==
[2020-04-19 11:41] LABS: ALBUMIN 4.4 g/dL (3.2-5.5); ALBUMIN/GLOBULIN RATIO 1.4 (1.0-2.2); ALKALINE PHOSPHATASE 80 IU/L (42-121); ALT ALANINE AMINOTRANSFERASE 126 IU/L (10-60); AST ASPARTATE AMINOTRANSFERASE 123 IU/L (10-42); BUN - BLOOD UREA NITROGEN 14 mg/dL (6-20); CALCIUM 9.5 mg/dL (8.5-10.3); CARBON DIOXIDE - CO2 26 mmol/L (21-32); CHLORIDE 105 mmol/L (101-111); CHOL/HDL RATIO 5.3 (<4.4); CHOLESTEROL 217 mg/dL; CREATININE 0.7 mg/dL (0.4-1.0); GLUCOSE 144 mg/dL (70-100); HDL CHOLESTEROL 41 mg/dL; LDL CHOLESTEROL,CALCULATED 133 mg/dL; LDL/HDL RATIO 3.2 (<4.4); SODIUM 140 mmol/L (135-145); TOTAL PROTEIN 7.6 g/dL (6.7-8.2); VLDL CHOLESTEROL 43 mg/dL
[2020-04-19 12:51] LABS: FREE T4 (FREE THYROXINE) 1.15 ng/dL (0.58-1.64)
[2020-04-19 14:52] LABS: HEMOGLOBIN A1c% 7.7 % (4.27-6.07)
== END 2020-04-19 11:05 | disposition home or self-care (01) ==
LOC: LAB 11:04
PROVIDERS: ATTEND Physician Assistant Medical
DX: E11.9 Type 2 diabetes mellitus without complications (principal); E03.9 Hypothyroidism, unspecified
CPT/HCPCS: 36415; 80053; 80061; 83036; 83721; 84439; 84443

== ENCOUNTER 2020-05-27 11:00 | Outpatient (CLI) | payer BC ==
[2020-05-27 11:31] LABS: ALBUMIN 4.2 g/dL (3.2-5.5); ALBUMIN/GLOBULIN RATIO 1.3 (1.0-2.2); BILIRUBIN,TOTAL 0.7 mg/dL (0.2-1.0); CREATININE 0.7 mg/dL (0.4-1.0); TOTAL PROTEIN 7.4 g/dL (6.7-8.2)
== END 2020-05-27 11:01 | disposition home or self-care (01) ==
LOC: LAB 11:00
PROVIDERS: ATTEND Physician Assistant Medical
DX: R74.8 Abnormal levels of other serum enzymes (principal)
CPT/HCPCS: 36415; 80053

== ENCOUNTER 2020-08-09 11:50 | Outpatient (CLI) | payer BC ==
[2020-08-09 12:38] LABS: ALBUMIN 4.4 g/dL (3.2-5.5); ALBUMIN/GLOBULIN RATIO 1.4 (1.0-2.2); BILIRUBIN,TOTAL 1.1 mg/dL (0.2-1.0); CALCIUM 9.7 mg/dL (8.5-10.3); CREATININE 0.8 mg/dL (0.4-1.0); TOTAL PROTEIN 7.5 g/dL (6.7-8.2)
== END 2020-08-09 11:51 | disposition home or self-care (01) ==
LOC: LAB 11:50
PROVIDERS: ATTEND Physician Assistant Medical
DX: E11.9 Type 2 diabetes mellitus without complications (principal)
CPT/HCPCS: 36415; 80053; 83036

== ENCOUNTER 2020-08-20 07:35 | Outpatient (CLI) | payer BC ==
--- NOTE | 2020-08-20 18:35 | Ultrasound Report ---
PROCEDURE: Abdomen Complete INDICATIONS: ELEVATED LIVER ENZYMES TECHNIQUE: Real-time scanning was performed of the abdominal and retroperitoneal organs, with image documentatio n. COMPARISON: CT abdomen and pelvis dated 03/17/2018 FINDINGS: Liver: The liver is enlarged measuring 20.1 cm with increased echogenicity. No focal abnormality. Gallbladder: Normal in size. Normal wall thickness. No pericholecystic fluid. Biliary ducts: Intrahepatic bile ducts are non-dilated. Extrahepatic bile duct caliber measures 5 m m. Normal is 6-7 mm or less in diameter, or 10 mm or less post-cholecystectomy. Pancreas: Visualized portions of the pancreas are sonographically normal. Spleen: Spleen is normal in size and homogeneous in echotexture. Kidneys: Kidneys are normal in size and echotexture. Right kidney measures 12.5 cm long; left kidne y measures 13.4 cm long. No hydronephrosis or nephrolithiasis. No solid masses. Aorta: Visualized aorta is normal in caliber at less than 3 cm. Iliacs: Proximal common iliac arteries are normal in caliber at less than 2.5 cm. IVC: Intrahepatic inferior vena cava is patent. Miscellaneous: No free abdominal fluid. IMPRESSION: Hepatomegaly with increased echogenicity suggestive of hepatic steatosis. No hydronephrosis is noted on today's exam. Unremarkable appearance of the kidneys. Reviewed by: Gerhard Bhatti DO on 08/20/2020 5:34 PM [facility] Approved by: Gerhard Bhatti DO on 08/20/2020 5:34 PM [place] Station ID: [id number]
== END 2020-08-20 07:36 | disposition home or self-care (01) ==
LOC: DI 07:35
PROVIDERS: ATTEND Physician Assistant Medical
DX: R16.0 Hepatomegaly, not elsewhere classified (principal)

== ENCOUNTER 2020-09-06 11:10 | Outpatient (CLI) | payer BC ==
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
== END 2020-09-06 11:11 | disposition home or self-care (01) ==
LOC: SC 11:10
PROVIDERS: ATTEND Nurse Practitioner Family
DX: G47.33 Obstructive sleep apnea (adult) (pediatric) (principal); E66.01 Morbid (severe) obesity due to excess calories; Z68.42 Body mass index [BMI] 45.0-49.9, adult
CPT/HCPCS: 99212

== ENCOUNTER 2020-11-08 10:20 | Outpatient (CLI) | payer BC ==
[2020-11-08 10:50] LABS: ALBUMIN 4.6 g/dL (3.2-5.5); ALBUMIN/GLOBULIN RATIO 1.8 (1.0-2.2); ALKALINE PHOSPHATASE 74 IU/L (42-121); ALT ALANINE AMINOTRANSFERASE 71 IU/L (10-60); AST ASPARTATE AMINOTRANSFERASE 63 IU/L (10-42); BILIRUBIN,TOTAL 1.2 mg/dL (0.2-1.0); BUN - BLOOD UREA NITROGEN 12 mg/dL (6-20); CALCIUM 9.6 mg/dL (8.5-10.3); CARBON DIOXIDE - CO2 23 mmol/L (21-32); CHLORIDE 103 mmol/L (101-111); CHOL/HDL RATIO 5.8 (<4.4); CHOLESTEROL 225 mg/dL; CREATININE 0.7 mg/dL (0.4-1.0); GFR - MDRD 87 (>89); GLUCOSE 147 mg/dL (70-100); HDL CHOLESTEROL 39 mg/dL; LDL CHOLESTEROL,CALCULATED 138 mg/dL; LDL/HDL RATIO 3.5 (<4.4); POTASSIUM 3.9 mmol/L (3.5-5.0); SODIUM 137 mmol/L (135-145); TOTAL PROTEIN 7.2 g/dL (6.7-8.2); TRIGLYCERIDES 238 mg/dL; VLDL CHOLESTEROL 48 mg/dL
[2020-11-08 13:07] LABS: ESTIMATED AVERAGE GLUCOSE 151 mg/dL (70-100); HEMOGLOBIN A1c% 6.9 % (4.27-6.07)
== END 2020-11-08 10:21 | disposition home or self-care (01) ==
LOC: LAB 10:20
PROVIDERS: ATTEND Physician Assistant Medical
DX: E11.9 Type 2 diabetes mellitus without complications (principal)
CPT/HCPCS: 36415; 80053; 80061; 83036; 83721

== ENCOUNTER 2020-11-22 10:44 | Outpatient (CLI) | payer BC ==
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
== END 2020-11-22 10:45 | disposition home or self-care (01) ==
LOC: SC 10:44
PROVIDERS: ATTEND Nurse Practitioner Family
DX: G47.33 Obstructive sleep apnea (adult) (pediatric) (principal); E66.01 Morbid (severe) obesity due to excess calories; Z68.42 Body mass index [BMI] 45.0-49.9, adult
CPT/HCPCS: 99212; 99213

== ENCOUNTER 2021-02-07 10:42 | Outpatient (CLI) | payer BC ==
[2021-02-07 11:59] LABS: ALBUMIN 4.3 g/dL (3.2-5.5); ALBUMIN/GLOBULIN RATIO 1.3 (1.0-2.2); ALKALINE PHOSPHATASE 79 IU/L (42-121); ALT ALANINE AMINOTRANSFERASE 75 IU/L (10-60); AST ASPARTATE AMINOTRANSFERASE 73 IU/L (10-42); BUN - BLOOD UREA NITROGEN 10 mg/dL (6-20); CALCIUM 9.4 mg/dL (8.5-10.3); CARBON DIOXIDE - CO2 22 mmol/L (21-32); CHLORIDE 106 mmol/L (101-111); CHOL/HDL RATIO 3.7 (<4.4); CHOLESTEROL 163 mg/dL; CREATININE 0.6 mg/dL (0.4-1.0); GFR - MDRD 103 (>89); GLUCOSE 168 mg/dL (70-100); HDL CHOLESTEROL 44 mg/dL; LDL CHOLESTEROL,CALCULATED 87 mg/dL; POTASSIUM 3.8 mmol/L (3.5-5.0); SODIUM 138 mmol/L (135-145); TOTAL PROTEIN 7.5 g/dL (6.7-8.2); TRIGLYCERIDES 161 mg/dL; URIC ACID 6.5 mg/dL (2.6-7.2); VLDL CHOLESTEROL 32 mg/dL
[2021-02-07 12:31] LABS: ESTIMATED AVERAGE GLUCOSE 169 mg/dL (70-100); HEMOGLOBIN A1c% 7.5 % (4.27-6.07)
[2021-02-09 13:27] LABS: HEPATITIS B SURFACE ANTIGEN NON-REACTIVE (NON-REACTIVE)
[2021-02-09 13:29] LABS: HEPATITIS C ANTIBODY NON-REACTIVE (NON-REACTIVE)
== END 2021-02-07 10:43 | disposition home or self-care (01) ==
LOC: LAB 10:42
PROVIDERS: ATTEND Physician Assistant Medical
DX: R74.8 Abnormal levels of other serum enzymes (principal); M10.9 Gout, unspecified; E11.9 Type 2 diabetes mellitus without complications
CPT/HCPCS: 36415; 80053; 80061; 83036; 83721; 84550; 86704; 86709; 86803; 87340

== ENCOUNTER 2021-03-17 13:44 | Outpatient (CLI) | payer BC ==
--- NOTE | 2021-03-20 15:58 | Mammography Report ---
BILATERAL DIGITAL SCREENING MAMMOGRAM 3D/2D: 03/17/2021 CLINICAL: Routine screening. Comparison is made to exams dated: 02/04/2019 ultrasound, 02/04/2019 mammogram, 01/16/2019 mammogram, 1 09/01/2014 mammogram, 07/14/2013 mammogram, and 02/25/2012 mammogram - [facility]. Th ere are scattered fibroglandular elements in both breasts. No significant masses, calcifications, or other findings are seen in either breast. There has been no significant interval change. IMPRESSION: NEGATIVE There is no mammographic evidence of malignancy. A 1 year screening mammogram is recommended. This exam was interpreted at Station ID: [id number]. NOTE: For mammograms, a report in lay terms will be sent to the patient. Approximately 15% of breast malignancies will not be visualized mammographically. In the management of a palpable breast mass, a negative mammogram must not discourage biopsy of a clinically suspicious lesion. Electronically Signed By: Abram Bergeron M.D., jr/merlyn:03/17/2021 15:17:53 ACR BI-RADS Category 1: Negative 3341F PARENCHYMAL PATTERN: (A) - The breast(s) demonstrate(s) scattered fibroglandular densities. BI-RADS CATEGORY: (1) - 1 RECOMMENDATION: (ANNUAL) - Recommend routine annual screening mammography. [id number] 1 year screening LATERALITY: (B)
== END 2021-03-17 13:45 | disposition home or self-care (01) ==
LOC: DI 13:44
PROVIDERS: ATTEND Physician Assistant Medical
DX: Z12.31 Encounter for screening mammogram for malignant neoplasm of breast (principal)

== ENCOUNTER 2021-05-08 10:16 | Outpatient (CLI) | payer BC ==
[2021-05-08 10:52] LABS: ALBUMIN 4.7 g/dL (3.2-5.5); ALBUMIN/GLOBULIN RATIO 1.5 (1.0-2.2); ALKALINE PHOSPHATASE 75 IU/L (42-121); ALT ALANINE AMINOTRANSFERASE 93 IU/L (10-60); AST ASPARTATE AMINOTRANSFERASE 91 IU/L (10-42); BUN - BLOOD UREA NITROGEN 12 mg/dL (6-20); CALCIUM 9.8 mg/dL (8.5-10.3); CARBON DIOXIDE - CO2 24 mmol/L (21-32); CHLORIDE 105 mmol/L (101-111); CHOL/HDL RATIO 3.5 (<4.4); CHOLESTEROL 143 mg/dL; CREATININE 0.7 mg/dL (0.4-1.0); GFR - MDRD 87 (>89); GLUCOSE 145 mg/dL (70-100); HDL CHOLESTEROL 41 mg/dL; LDL CHOLESTEROL,CALCULATED 72 mg/dL; LDL/HDL RATIO 1.8 (<4.4); POTASSIUM 4.1 mmol/L (3.5-5.0); SODIUM 141 mmol/L (135-145); TOTAL PROTEIN 7.9 g/dL (6.7-8.2); TRIGLYCERIDES 152 mg/dL; VLDL CHOLESTEROL 30 mg/dL
[2021-05-08 12:07] LABS: ESTIMATED AVERAGE GLUCOSE 143 mg/dL (70-100); HEMOGLOBIN A1c% 6.6 % (4.27-6.07)
== END 2021-05-08 10:17 | disposition home or self-care (01) ==
LOC: LAB 10:16
PROVIDERS: ATTEND Physician Assistant Medical
DX: E11.9 Type 2 diabetes mellitus without complications (principal)
CPT/HCPCS: 36415; 80053; 80061; 83036; 83721

== ENCOUNTER 2021-11-26 18:09 | Emergency (ER) | payer BC ==
--- NOTE | 2021-11-26 18:48 | ED Physician Documentation ---
History of Present Illness - Stated complaint Stated Complaint: RIGHT CALF & FOOT PX - Chief complaint Chief Complaint: Ext Problem - Additonal information Additional information: 56-year-old female presents to the emergency department for evaluation of acute right posterior calf pain. Symptoms began 48 hours ago and she noticed them when walking though it was not up a hill or under duress. She does have a history of a right leg DVT in 1989. 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 She denies any recent immobilization or surgeries. She did recently travel to [facility] via car. She recently found out however that multiple cousins as well as her grandmother have clotting disorders including factor V Leyden deficiency. Review of Systems Constitutional: denies: Fever, Chills Throat: reports: Reviewed and negative Cardiac: reports: Reviewed and negative Respiratory: reports: Reviewed and negative Musculoskeletal: reports: Extremity pain PD PAST MEDICAL HISTORY - Past Medical History Past Medical History: Yes Cardiovascular: High cholesterol Respiratory: None Neuro: None Endocrine/Autoimmune: Type 2 diabetes, HyPOthyroidism : Kidney stones - Past Surgical History Past Surgical History: Yes /MECHANICAL LEAD: section, Hysterectomy - Present Medications Home Medications: Ambulatory Orders Medication Instructions Recorded Confirmed Albuterol 2 puffs INH Q6HR PRN 03/04/18 11/26/21 Azelastine/Fluticasone [Dymista 2 spray RIKI DAILY 03/04/18 11/26/21 Nasal [place]] EPINEPHrine [Epipen 2-Kel] 1 syr IM ONCE PRN 03/04/18 11/26/21 Fluticasone [Flonase] 2 spray RIKI DAILY 03/04/18 11/26/21 Levothyroxine Sodium 200 mcg PO DAILY 03/04/18 11/26/21 Colchicine 0.6 mg PO DAILY PRN 11/26/21 11/26/21 Rosuvastatin Calcium [Crestor] 10 mg PO DAILY 11/26/21 11/26/21 metFORMIN [Glucophage] 500 mg PO BID 11/26/21 11/26/21 - Allergies Allergies/Adverse Reactions: Allergies Allergy/AdvReac Type Severity Reaction Status Date / Time erythromycin base Allergy Mild Nausea Verified 11/26/21 18:11 Penicillins Allergy Mild Rash Verified 11/26/21 18:11 red dye Allergy Mild Rash Verified 11/26/21 18:11 codeine AdvReac Severe Anaphylaxis Verified 11/26/21 18:11 iodine AdvReac Severe Anaphylaxis Verified 11/26/21 18:11 shellfish derived AdvReac Severe Anaphylaxis Verified 11/26/21 18:11 Sulfa (Sulfonamide AdvReac Severe Anaphylaxis Verified 11/26/21 18:11 Antibiotics) Tetanus Vaccines and Toxoid AdvReac Severe Anaphylaxis Verified 11/26/21 18:11 acetaminophen [From Percocet] AdvReac Unknown Verified 11/26/21 18:11 aspirin [From Percodan] AdvReac Unknown Verified 11/26/21 18:11 oxycodone [From Percocet] AdvReac Unknown Verified 11/26/21 18:11 - Social History Does the pt smoke?: No Smoking Status: Never smoker Does the pt drink ETOH?: Yes Does the pt have substance abuse?: No - Immunizations Immunizations are current?: Yes PD ED PE EXPANDED - General General: Alert, No acute distress, Other (obese) - Extremities Extremities: Right leg (Tenderness with palpation of the posterior calf. No obvious swelling deformity or erythema. She does have a positive Homans on the right leg.) - Neuro Neuro: Alert and Oriented X 3, CNII-XII intact - GCS Eye Opening: Spontaneous Motor: Abnormal Flexion Verbal: Oriented Total: 12 Results - Vitals Vitals: Vital Signs - 24 hr 11/26/21 18:12 Temperature 36.5 C Heart Rate 84 Respiratory 16 Rate Blood Pressure 160/90 H O2 Saturation 96 Oxygen O2 Source Room air - Labs Labs: Laboratory Tests 11/26/21 11/26/21 11/26/21 18:55 18:55 18:55 WBC 6.0 RBC 4.81 Hgb 14.4 Hct 43.0 MCV 89.4 MCH 29.9 MCHC 33.5 RDW 12.3 Plt Count 191 MPV 9.5 Neut # (Auto) 3.1 Lymph # (Auto) 2.2 [place] # (Auto) 0.5 Eos # (Auto) 0.2 Baso # (Auto) 0.0 Absolute Nucleated RBC 0.00 Nucleated RBC % 0.0 PT 12.2 INR 1.1 Sodium 136 Potassium 3.7 Chloride 101 Carbon Dioxide 24 Anion Gap 11.0 BUN 12 Creatinine 0.6 Estimated GFR (MDRD) 103 Glucose 223 H Calcium 9.5 - Rads (name of study) US DVT Radiology: Final report received (No evidence of right lower extremity DVT. Small calf hematoma.) PD MEDICAL DECISION MAKING - ED course Complexity details: reviewed results, re-evaluated patient, d/w patient ED course: 56-year-old female with 3 days of acute right posterior calf pain that occurred when walking up a hill. No leg swelling or erythema but she did have a positive Homans. Ultrasound DVT shows no clot burden though she does have a hematoma. I suspect that she has a mild gastrocnemius tear while walking up the hill. Emergent return precautions were discussed for failure symptoms to resolve. Departure - Departure Disposition: 01 Home, Self Care Clinical Impression: Right calf pain Condition: Stable Record reviewed to determine appropriate education?: Yes Comments: Ivy you are seen today in the emergency department for pain behind your right calf. The ultrasound does not show a blood clot though we do see a fluid collection which is described as a hematoma by the radiologist. I do recommend a gentle compress on your lower leg 2-3 times a day for 10 minutes. If at any point you find your symptoms worsen, you develop leg swelling, fevers or redness or have any concerns of infection then please return immediately to the ER for second evaluation.
[2021-11-26 19:01] LABS: BASOPHILS % (AUTO) 0.7 %; EOSINOPHILS # (AUTO) 0.2 10^3/uL (0.0-0.7); EOSINOPHILS % (AUTO) 2.7 %; HGB - HEMOGLOBIN 14.4 g/dL (12.0-16.0); LYMPHOCYTES # (AUTO) 2.2 10^3/uL (1.5-3.5); LYMPHOCYTES % (AUTO) 36.1 %; MEAN CORPUSCULAR HEMOGLOBIN 29.9 pg (27.0-31.0); MEAN CORPUSCULAR HGB CONC 33.5 g/dL (32.0-36.0); MEAN CORPUSCULAR VOLUME 89.4 fL (81.0-99.0); MEAN PLATELET VOLUME 9.5 fL (7.9-10.8); MONOCYTES # (AUTO) 0.5 10^3/uL (0.0-1.0); MONOCYTES % (AUTO) 8.4 %; NEUTROPHILS # (AUTO) 3.1 10^3/uL (1.5-6.6); NEUTROPHILS % (AUTO) 51.8 %; PLT - PLATELET COUNT 191 10^3/uL (130-450); RED BLOOD COUNT 4.81 10^6/uL (4.20-5.40); RED CELL DISTRIBUTION WIDTH 12.3 % (12.0-15.0)
[2021-11-26 19:09] LABS: INR 1.1 (0.8-1.2); PT - PROTHROMBIN TIME 12.2 secs (9.9-12.6)
[2021-11-26 19:10] LABS: CALCIUM 9.5 mg/dL (8.5-10.3); CREATININE 0.6 mg/dL (0.4-1.0); POTASSIUM 3.7 mmol/L (3.5-5.0)
--- NOTE | 2021-11-26 19:52 | Ultrasound Report ---
PROCEDURE: Duplex Ext Veins Right INDICATIONS: pain TECHNIQUE: Real-time imaging, as well as color and pulse Doppler interrogation, were performed of the lower extr emity deep veins from the inguinal ligament to the popliteal fossa. COMPARISON: None. FINDINGS: The deep veins are normally compressible, and free of intraluminal thrombus. Color and pu lse Doppler demonstrate normal phasic intraluminal flow. There is normal augmentation response to di stal compression maneuver. 3. 6 mm x 6 mm x 17 mm focus of heterogeneous echogenicity within the m edial calf. IMPRESSION: 1. No evidence of right lower extremity DVT. 2.Small calf hematoma. Reviewed by: Tristan Moore MD on 11/26/2021 7:51 PM PDT Approved by: Tristan Moore MD on 11/26/2021 7:51 PM PDT Station ID: [id number]
[2021-11-26 20:32] VITALS: BP 150/88
== END 2021-11-26 20:30 | disposition home or self-care (01) ==
LOC: ED 18:09
DX: M79.661 Pain in right lower leg (principal); E11.9 Type 2 diabetes mellitus without complications; Z79.84 Long term (current) use of oral hypoglycemic drugs
CPT/HCPCS: 36415; 80048; 85025; 85610; 99282; 99284

== ENCOUNTER 2021-12-06 14:09 | Outpatient (CLI) | payer BC ==
[2021-12-06 15:16] VITALS: BP 108/78
--- NOTE | 2021-12-06 15:16 | SLEEP CARE CONSULTATION ---
Information from patient questionnaire entered by Darron Adames MA. I have reviewed and concur with the information entered by Darron Adames MA. This document represents the service I personally performed and the decisions made by , Leila Givens ARNP. History of Present Illness Service Date and Time: 12/06/2021 1409 Previous diagnosis: Very Severe, Obstructive Sleep Apnea-Hypopnea Syndrome AHI: 89.7 (in 2017) Reason for follow up: annual (LAST SEEN 11/16, ) Equipment type: CPAP Equipment obtained from: Other ([facility]) Mask style: Full face Mask brand: Respironics (Air Touch F20, small cushion and headgear) Backup mask available: Yes (old mask) Prior sleep studies: Yes Year and Where: 2016 - [facility] Type of Sleep Study: Polysomnography HPI additional information: EBONY CHIANG was diagnosed to have very severe, AHI 89.7, obstructive sleep apnea-hypopnea syndrome and returned today for CPAP therapy annual follow-up. Sleep Study - Results Type of Sleep Study: Polysomnography [facility] Yes [facility] - Data Reviewed with Patient Average duration of nightly device use: 9 HOURS 53 MINUTES Compliance rate %: 99.4 Current pressure setting (cmH2O): 10-11 Humidity settin Heated hose settin Average residual AHI: 5.1 Average large leak: 2 MINUTES 13 MINUTES Subjective Missed days of use due to: reports: illness (SINCE INFECTION FROM EMT, RECALLED, ) Patient concerns: reports: air blowing in eyes, mask leak noise, dry mouth, nose, throat, other (HEADACHE) Observed to snore while using device: No Current pressure setting perceived as: comfortable (sometimes goes too high) On therapy, patient: reports: sleeping better, awakening more refreshed, being more awake and alert during the day, more rested overall. denies: drowsiness while driving Initial [place] Sleepiness Scale score: 16 (in 2017) Current [place] Sleepiness Scale score: 9 (11/2021) Allergies and Home Medications Known drug allergies: No Drug allergies reviewed: Yes Home medication list reviewed: Yes (Metformin) Allergy and home medication list: Allergies erythromycin base Allergy (Mild, Verified 11/26/21 18:11) Nausea Penicillins Allergy (Mild, Verified 11/26/21 18:11) Rash red dye Allergy (Mild, Verified 11/26/21 18:11) Rash codeine Adverse Reaction (Severe, Verified 11/26/21 18:11) Anaphylaxis iodine Adverse Reaction (Severe, Verified 11/26/21 18:11) Anaphylaxis shellfish derived Adverse Reaction (Severe, Verified 11/26/21 18:11) Anaphylaxis Sulfa (Sulfonamide Antibiotics) Adverse Reaction (Severe, Verified 11/26/21 18:11) Anaphylaxis Tetanus Vaccines and Toxoid Adverse Reaction (Severe, Verified 11/26/21 18:11) Anaphylaxis acetaminophen [From Percocet] Adverse Reaction (Verified 11/26/21 18:11) Unknown aspirin [From Percodan] Adverse Reaction (Verified 11/26/21 18:11) Unknown oxycodone [From Percocet] Adverse Reaction (Verified 11/26/21 18:11) Unknown Review of Systems Review of systems same as previous: No (DIABETIC DUE TO COVID - 19) Physical Exam Vital signs obtained and entered by: Rell ADAMES CMA AAMA Blood Pressure: 108/78 (RIGHT, NERVE REJUVINATION DONT USE RIGHT SIDE,) Heart Rate: 80 O2 Saturation: 97 (PAPER) Height: 5 ft 7.5 in Weight: 291 lb Weight change since last visit: 9 lb loss Body Mass Index: 44.9 BMI Classification: Morbidly Obese Impression and Plan 1. Obstructive Sleep Apnea-Hypopnea Syndrome, very severe, with excellent treatment compliance and good apnea control. On CPAP therapy, the patient has better sleep quality and is more rested overall. Patient has a Dreamstation. Patient has already registered their device for the recall. Patient continues to wait for a new device, she has not heard anything from [employer]. I gave her their phone number to call and check on her status. She last updated her CPAP in 02/2017. Patient would be willing to buy a new machine to get out of using this recalled CPAP. She will be eligible in a couple months and in some cases it is taking that long to obtain a new device. Patient would prefer a [employer] Airsense machine which could take that long to obtain. I advised that she could speak with her insurance to get approval to update her device sooner and that we would need to see her for a compliance visit after she gets her new device. She voiced understanding. Patient voiced understanding and agreement with plan. Patient's apnea severity and rationale for treatment to reduce apnea, improve sleep quality and reduce cardiovascular and cerebrovascular events was reviewed. 2. Obesity, unspecified. Patient has lost weight since her last appointment. Currently patients BMI is 44.9. Obesity increases the risk of apnea, CPAP pressure requirements and overall health risks especially cardiovascular and diabetes. Thus patient is advised to continue to try to lose weight. Weight loss can be done with reducing portion size, reducing refined foods and balancing content with vegetables, fruit and whole grain foods. In addition, patient encouraged to get regular exercise. The patient's CPAP pressure range should accommodate some weight loss. * Continue auto CPAP pressure at 10-11 cmH2O * Update device * Update supplies as needed * Notify me if snoring with mask or feeling that the pressure is too much or too little * Continue to try to lose weight * Call this office if any problems using CPAP * Return for follow up one month after obtaining new machine, or sooner if concerns arise Counseling Topics: Spare mask, Weight loss health impact Visit Type: In Office Time Spent with Patient (minutes): 29 Provider Statement: I spent 100% of the Face to Face Visit with the patient with greater than 50% spent counseling the patient and coordination of care.
== END 2021-12-06 14:10 | disposition home or self-care (01) ==
LOC: SC 14:09
PROVIDERS: ATTEND Nurse Practitioner Family
DX: G47.33 Obstructive sleep apnea (adult) (pediatric) (principal); E66.01 Morbid (severe) obesity due to excess calories; Z68.41 Body mass index [BMI] 40.0-44.9, adult
CPT/HCPCS: 99212; 99213

== ENCOUNTER 2022-03-28 08:06 | Outpatient (CLI) | payer BC ==
[2022-03-28 08:43] LABS: ALBUMIN 4.6 g/dL (3.2-5.5); ALBUMIN/GLOBULIN RATIO 1.7 (1.0-2.2); BILIRUBIN,TOTAL 1.1 mg/dL (0.2-1.0); CALCIUM 9.6 mg/dL (8.5-10.3); CREATININE 0.6 mg/dL (0.4-1.0); POTASSIUM 3.8 mmol/L (3.5-5.0); TOTAL PROTEIN 7.3 g/dL (6.7-8.2)
[2022-03-28 08:59] LABS: THYROID STIMULATING HORMONE < 0.08 uIU/mL (0.34-5.60)
[2022-03-28 09:05] LABS: ESTIMATED AVERAGE GLUCOSE 183 mg/dL (70-100)
[2022-03-28 09:33] LABS: FREE T4 (FREE THYROXINE) 1.87 ng/dL (0.58-1.64)
[2022-03-28 10:51] LABS: CREATININE,URINE 210.2 mg/dL; MICROALBUM/CREATININE RATIO,UR 3.3 ug/mg (<30.0); MICROALBUMIN,URINE 0.7 mg/dL (0-300.0)
== END 2022-03-28 08:07 | disposition home or self-care (01) ==
LOC: LAB 08:06
PROVIDERS: ATTEND Physician Assistant Medical
DX: E11.9 Type 2 diabetes mellitus without complications (principal)
CPT/HCPCS: 36415; 80053; 82043; 82570; 83036; 84439; 84443

== ENCOUNTER 2022-07-16 10:39 | Outpatient (CLI) | payer BC ==
[2022-07-16 11:14] LABS: ALBUMIN 4.3 g/dL (3.2-5.5); ALBUMIN/GLOBULIN RATIO 1.3 (1.0-2.2); ALKALINE PHOSPHATASE 72 IU/L (42-121); ALT ALANINE AMINOTRANSFERASE 42 IU/L (10-60); AST ASPARTATE AMINOTRANSFERASE 36 IU/L (10-42); BUN - BLOOD UREA NITROGEN 9 mg/dL (6-20); CALCIUM 9.4 mg/dL (8.5-10.3); CARBON DIOXIDE - CO2 25 mmol/L (21-32); CHLORIDE 102 mmol/L (101-111); CHOL/HDL RATIO 2.9 (<4.4); CHOLESTEROL 121 mg/dL; CREATININE 0.6 mg/dL (0.4-1.0); GFR - MDRD 103 (>89); GLUCOSE 134 mg/dL (70-100); HDL CHOLESTEROL 42 mg/dL; LDL CHOLESTEROL,CALCULATED 46 mg/dL; LDL/HDL RATIO 1.1 (<4.4); SODIUM 137 mmol/L (135-145); TOTAL PROTEIN 7.5 g/dL (6.7-8.2); TRIGLYCERIDES 166 mg/dL; VLDL CHOLESTEROL 33 mg/dL
[2022-07-16 14:02] LABS: ESTIMATED AVERAGE GLUCOSE 174 mg/dL (70-100); HEMOGLOBIN A1c% 7.7 % (4.27-6.07)
== END 2022-07-16 10:40 | disposition home or self-care (01) ==
LOC: LAB 10:39
PROVIDERS: ATTEND Physician Assistant Medical
DX: E11.9 Type 2 diabetes mellitus without complications (principal); D51.9 Vitamin B12 deficiency anemia, unspecified
CPT/HCPCS: 36415; 80053; 80061; 82607; 83036; 83721

== ENCOUNTER 2022-09-10 09:28 | Outpatient (CLI) | payer BC ==
--- NOTE | 2022-09-11 12:22 | Mammography Report ---
BILATERAL DIGITAL SCREENING MAMMOGRAM 3D/2D: 09/10/2022 CLINICAL: Routine screening. Comparison is made to exams dated: 03/17/2021 mammogram, 02/04/2019 mammogram, 01/16/2019 mammogram, mammogram, and 07/14/2013 mammogram - [facility]. Both breasts are heterogeneously dense, which may obscure small masses (category c / 51-75% glandular tissue). No significant masses, calcifications, or other findings are seen in either breast. There has been no significant interval change. IMPRESSION: NEGATIVE There is no mammographic evidence of malignancy. A 1 year screening mammogram is recommended. Based on the Tyrer Cuzick model (a risk assessment model) the patients lifetime risk is 10.5% and he r 10 year risk is 3.6%. According to the ACR, ACS, and NCCN guidelines, an annual breast MRI exam macie ng with mammogram is recommended if the patients lifetime risk is 20% or greater. This exam was interpreted at Station ID: [id number]. NOTE: For mammograms, a report in lay terms will be sent to the patient. Approximately 15% of breast malignancies will not be visualized mammographically. In the management of a palpable breast mass, a negative mammogram must not discourage biopsy of a clinically suspicious lesion. Electronically Signed By: Rivka [email or web address]/[email or web address]:09/10/2022 17:55:58 ACR BI-RADS Category 1: Negative 3341F PARENCHYMAL PATTERN: (D) - The breast(s) demonstrate(s) heterogeneously dense fibroglandular louie chavis. BI-RADS CATEGORY: (1) - 1 RECOMMENDATION: (ANNUAL) - Recommend routine annual screening mammography. [id number] 1 year screening LATERALITY: (B)
== END 2022-09-10 09:29 | disposition home or self-care (01) ==
LOC: DI 09:28
DX: Z12.31 Encounter for screening mammogram for malignant neoplasm of breast (principal)

== ENCOUNTER 2022-10-16 08:14 | Outpatient (CLI) | payer BC ==
[2022-10-16 08:45] LABS: ALBUMIN 4.3 g/dL (3.2-5.5); ALBUMIN/GLOBULIN RATIO 1.4 (1.0-2.2); BILIRUBIN,TOTAL 0.8 mg/dL (0.2-1.0); CALCIUM 9.2 mg/dL (8.5-10.3); CREATININE 0.8 mg/dL (0.4-1.0); POTASSIUM 3.8 mmol/L (3.5-5.0); TOTAL PROTEIN 7.4 g/dL (6.7-8.2)
[2022-10-16 08:59] LABS: THYROID STIMULATING HORMONE < 0.08 uIU/mL (0.34-5.60)
[2022-10-16 09:30] LABS: FREE T4 (FREE THYROXINE) 1.76 ng/dL (0.58-1.64)
[2022-10-16 10:20] LABS: ESTIMATED AVERAGE GLUCOSE 160 mg/dL (70-100); HEMOGLOBIN A1c% 7.2 % (4.27-6.07)
== END 2022-10-16 08:15 | disposition home or self-care (01) ==
LOC: LAB 08:14
PROVIDERS: ATTEND Physician Assistant Medical
DX: E11.9 Type 2 diabetes mellitus without complications (principal); E03.9 Hypothyroidism, unspecified
CPT/HCPCS: 36415; 80053; 83036; 84439; 84443

== ENCOUNTER 2023-01-14 08:07 | Outpatient (CLI) | payer BC ==
[2023-01-14 08:56] LABS: ALBUMIN 4.3 g/dL (3.2-5.5); ALBUMIN/GLOBULIN RATIO 1.3 (1.0-2.2); ALKALINE PHOSPHATASE 71 IU/L (42-121); ALT ALANINE AMINOTRANSFERASE 50 IU/L (10-60); AST ASPARTATE AMINOTRANSFERASE 41 IU/L (10-42); BILIRUBIN,TOTAL 0.9 mg/dL (0.2-1.0); BUN - BLOOD UREA NITROGEN 11 mg/dL (6-20); CALCIUM 9.3 mg/dL (8.5-10.3); CARBON DIOXIDE - CO2 24 mmol/L (21-32); CHLORIDE 105 mmol/L (101-111); CHOL/HDL RATIO 2.7 (<4.4); CHOLESTEROL 113 mg/dL; CREATININE 0.7 mg/dL (0.4-1.0); GFR - MDRD 86 (>89); GLUCOSE 122 mg/dL (70-100); HDL CHOLESTEROL 42 mg/dL; LDL CHOLESTEROL,CALCULATED 47 mg/dL; LDL/HDL RATIO 1.1 (<4.4); SODIUM 138 mmol/L (135-145); TOTAL PROTEIN 7.5 g/dL (6.7-8.2); TRIGLYCERIDES 122 mg/dL; VLDL CHOLESTEROL 24 mg/dL
[2023-01-14 09:09] LABS: THYROID STIMULATING HORMONE 0.01 uIU/mL (0.34-5.60)
[2023-01-14 09:32] LABS: ESTIMATED AVERAGE GLUCOSE 143 mg/dL (70-100); HEMOGLOBIN A1c% 6.6 % (4.27-6.07)
[2023-01-14 09:39] LABS: FREE T4 (FREE THYROXINE) 1.7 ng/dL (0.58-1.64)
== END 2023-01-14 08:08 | disposition home or self-care (01) ==
LOC: LAB 08:07
PROVIDERS: ATTEND Physician Assistant Medical
DX: E78.5 Hyperlipidemia, unspecified (principal); D51.9 Vitamin B12 deficiency anemia, unspecified; E11.9 Type 2 diabetes mellitus without complications; E03.9 Hypothyroidism, unspecified
CPT/HCPCS: 36415; 80053; 80061; 82607; 83036; 83721; 84439; 84443

== ENCOUNTER 2023-04-02 07:57 | Outpatient (CLI) | payer BC ==
[2023-04-02 08:41] LABS: CALCIUM 9.8 mg/dL (8.5-10.3); CREATININE 0.8 mg/dL (0.6-1.3); POTASSIUM 4.1 mmol/L (3.5-4.5)
[2023-04-02 09:08] LABS: THYROID STIMULATING HORMONE 0.02 uIU/mL (0.34-5.60)
[2023-04-02 11:13] LABS: ESTIMATED AVERAGE GLUCOSE 114 mg/dL (70-100); HEMOGLOBIN A1c% 5.6 % (4.27-6.07)
== END 2023-04-02 07:58 | disposition home or self-care (01) ==
LOC: LAB 07:57
PROVIDERS: ATTEND Physician Assistant Medical
DX: E11.9 Type 2 diabetes mellitus without complications (principal); E03.9 Hypothyroidism, unspecified
CPT/HCPCS: 36415; 80048; 83036; 84439; 84443

== ENCOUNTER 2023-07-01 10:54 | Outpatient (CLI) | payer BC ==
[2023-07-01 11:35] LABS: CREATININE 0.8 mg/dL (0.6-1.3); POTASSIUM 4.2 mmol/L (3.5-4.5)
[2023-07-01 11:45] LABS: THYROID STIMULATING HORMONE 0.03 uIU/mL (0.34-5.60)
[2023-07-01 12:44] LABS: ESTIMATED AVERAGE GLUCOSE 108 mg/dL (70-100); HEMOGLOBIN A1c% 5.4 % (4.27-6.07)
== END 2023-07-01 10:55 | disposition home or self-care (01) ==
LOC: LAB 10:54
PROVIDERS: ATTEND Physician Assistant Medical
DX: E11.9 Type 2 diabetes mellitus without complications (principal); E03.9 Hypothyroidism, unspecified
CPT/HCPCS: 36415; 80048; 83036; 84439; 84443

== ENCOUNTER 2023-09-15 19:42 | Emergency (ER) | payer BC, OTHER ==
--- NOTE | 2023-09-15 20:02 | ED Physician Documentation ---
PD HPI ABD PAIN - Stated complaint Stated Complaint: ABD PX/CHILLS - Chief complaint Chief Complaint: Abd Pain - History obtained from History obtained from: Patient - Additional information Additional information: HPI from patient. Patient says that approximate 4 days ago, she had gradual onset, waxing and waning (since then) right flank pain that radiates around to the right anterior mid and lower abdomen. Since earlier today, patient has noticed the pain has spread to LLQ, as well. This has been associate with nausea and, when the pain is at its most intense, vomiting. She denies fever. She also is experiencing urinary frequency over the past few days. Patient says that the symptoms feel dario to her previous episodes of renal colic. She also is experiencing urinary frequency over the past few days. Patient says that the symptoms feel dario to her previous episodes of renal colic. Review of Systems Constitutional: denies: Fever, Chills, Sweats Cardiac: reports: Reviewed and negative Respiratory: reports: Reviewed and negative GI: reports: Abdominal Pain, Nausea, Vomiting. denies: Abdominal Swelling, Constipation, Diarrhea : reports: Frequency. denies: Dysuria PD PAST MEDICAL HISTORY - Past Medical History Past Medical History: Yes Cardiovascular: High cholesterol Respiratory: None Neuro: None Endocrine/Autoimmune: Type 2 diabetes, HyPOthyroidism : Kidney stones - Past Surgical History Past Surgical History: Yes /CONTENT COORDINATOR: section, Hysterectomy - Present Medications Home Medications: Ambulatory Orders Medication Instructions Recorded Confirmed Albuterol 2 puffs INH Q6HR PRN 03/04/18 11/26/21 Azelastine/Fluticasone [Dymista 2 spray RIKI DAILY 03/04/18 11/26/21 Nasal [place]] EPINEPHrine [Epipen 2-Kel] 1 syr IM ONCE PRN 03/04/18 11/26/21 Fluticasone [Flonase] 2 spray RIKI DAILY 03/04/18 11/26/21 Levothyroxine Sodium 200 mcg PO DAILY 03/04/18 11/26/21 Colchicine 0.6 mg PO DAILY PRN 11/26/21 11/26/21 Rosuvastatin Calcium [Crestor] 10 mg PO DAILY 11/26/21 11/26/21 metFORMIN [Glucophage] 500 mg PO BID 11/26/21 11/26/21 Ciprofloxacin HCl 1 tablet PO BID 10 Days #20 tablet 09/15/23 - Allergies Allergies/Adverse Reactions: Allergies Allergy/AdvReac Type Severity Reaction Status Date / Time erythromycin base Allergy Mild Nausea Verified 09/15/23 19:45 Penicillins Allergy Mild Rash Verified 09/15/23 19:45 red dye Allergy Mild Rash Verified 09/15/23 19:45 codeine AdvReac Severe Anaphylaxis Verified 09/15/23 19:45 iodine AdvReac Severe Anaphylaxis Verified 09/15/23 19:45 shellfish derived AdvReac Severe Anaphylaxis Verified 09/15/23 19:45 Sulfa (Sulfonamide AdvReac Severe Anaphylaxis Verified 09/15/23 19:45 Antibiotics) Tetanus Vaccines and Toxoid AdvReac Severe Anaphylaxis Verified 09/15/23 19:45 acetaminophen [From Percocet] AdvReac Unknown Verified 09/15/23 19:45 aspirin [From Percodan] AdvReac Unknown Verified 09/15/23 19:45 oxycodone [From Percocet] AdvReac Unknown Verified 09/15/23 19:45 tamsulosin [From Flomax] AdvReac Unknown Verified 09/15/23 20:04 - Social History Does the pt smoke?: No Smoking Status: Never smoker Does the pt drink ETOH?: Yes Does the pt have substance abuse?: No - Immunizations Immunizations are current?: Yes PD ED PE NORMAL - Vitals Vital signs reviewed: Yes - General General: Alert and oriented X 3, No acute distress (at times appears to be in mild painful discomfort), Well developed/nourished - Cardiac Cardiac: RRR, No murmur - Respiratory Respiratory: No respiratory distress, Clear bilaterally - Abdomen Abdomen: Soft, Non distended, Other (mild TTP LLQ without rebound or guarding) Results - Vitals Vitals: Oxygen O2 Source Room air - Labs Labs: Microbiology 09/15/23 19:58 Urine Culture - Preliminary Urine,Random Escherichia Coli Laboratory Tests 09/15/23 09/15/23 09/15/23 19:58 19:59 19:59 WBC 10.4 RBC 4.93 Hgb 14.6 Hct 43.8 MCV 88.8 MCH 29.6 MCHC 33.3 RDW 12.3 Plt Count 209 MPV 9.2 Neut # (Auto) 7.6 H Lymph # (Auto) 1.7 Hood # (Auto) 1.0 Eos # (Auto) 0.1 Baso # (Auto) 0.0 Absolute Nucleated RBC 0.00 Nucleated RBC % 0.0 Sodium 134 L Potassium 3.5 Chloride 99 L Carbon Dioxide 26 Anion Gap 9.0 BUN 8 Creatinine 0.8 Estimated GFR (MDRD) 74 L Glucose 139 H Calcium 9.8 Total Bilirubin 1.6 H AST 17 ALT 21 Alkaline Phosphatase 83 Total Protein 7.7 Albumin 4.4 Globulin 3.3 Albumin/Globulin Ratio 1.3 Lipase 24 Urine Color ORANGE Urine Clarity CLOUDY Urine pH 6.0 Ur Specific [place] 1.015 Urine Protein TNP Urine Glucose (UA) TNP Urine Ketones TNP Urine Occult Blood SMALL H Urine Nitrite POSITIVE H Urine Bilirubin NEGATIVE Urine Urobilinogen TNP Ur Leukocyte Esterase LARGE H Urine RBC 11-25 H Urine WBC >25 H Urine WBC Clumps PRESENT Ur Squamous Epith Cells FEW Squamous Urine Bacteria Many H Ur Microscopic Review INDICATED Urine Culture Comments INDICATED - Rads (name of study) CT A/P with IV contrast Relevant Findings:: Prelim report reviewed, See rad report PD Medical Decision Making - ED course Complexity details: reviewed results, re-evaluated patient, considered differential, d/w patient ED course: Patient says she has an extensive number of medication allergies including many antibiotics and most pain medications. She says she does desire pain medication and asked her what I can give her for this pain. She says she is able to take Toradol and she often receives Flexeril for these episodes. She says she is allergic to Flomax and thus this is not given. She says she can have an IV contrast CT scan provide she is premedicated with, specifically, 125 mg Solu-Medrol IV as well as 50-75 mg of Benadryl. She is given Solu-Medrol as well as 25 mg IV Benadryl. She is also given 15 mg IV Toradol and 50 mg IV Benadryl. The right flank pain is suggestive of renal colic, but the left lower quadrant tenderness would not be consistent with this diagnosis. She says she had a recent colonoscopy, was told there was no evidence of diverticulosis. However, I see a CT abdomen/pelvis performed in this ED in 2018 which indicates severe diverticulosis of the colon. Magali's CT A/P demonstrates mild right perinephric stranding without evidence of calculis/calculus. Mild splenomegaly. UA is highly s/o UTI. This result, combined with CT finding, suggest right pyelonephritis. supporting outpatient treatment are normal CBC, normal vital signs, symptoms are controlled. She is given IV cipro with 10-day rx for same. Test results and diagnosis d/w patient along with prognosis, return precautions, and instructions to follow up with PCP in 3-5 days for reevaluation Departure - Departure Disposition: 01 Home, Self Care Clinical Impression: Pyelonephritis Condition: Good Instructions: ED Kidney Infec Female Follow-Up: Selena Costello PA-C [Primary Care Provider] - (3-5 days ) Prescriptions: Ciprofloxacin HCl 1 tablet PO BID 10 Days #20 tablet Comments: Your urinalysis result was highly consistent with a urinary tract infection, and the CT scan of your abdomen and pelvis shows inflammation around the right kidney; combined, these findings are consistent with a right-sided kidney infection (pyelonephritis) which likely started as a bladder infection that ascended up the ureter (the tube that connects kidney to the bladder). This is typically due to a bacterial infection and thus you were given the first dose of an antibiotic (ciprofloxacin) in the emergency department, and I have electronically submitted a prescription for a 10-day course of this antibiotic to the [facility] pharmacy in [place]. Forms: PCP List Discharge Date/Time: 09/16/23 00:00
[2023-09-15 20:07] LABS: BASOPHILS % (AUTO) 0.4 %; EOSINOPHILS # (AUTO) 0.1 10^3/uL (0.0-0.7); EOSINOPHILS % (AUTO) 0.5 %; HCT - HEMATOCRIT 43.8 % (37.0-47.0); HGB - HEMOGLOBIN 14.6 g/dL (12.0-16.0); LYMPHOCYTES # (AUTO) 1.7 10^3/uL (1.5-3.5); LYMPHOCYTES % (AUTO) 16.3 %; MEAN CORPUSCULAR HEMOGLOBIN 29.6 pg (27.0-31.0); MEAN CORPUSCULAR HGB CONC 33.3 g/dL (32.0-36.0); MEAN CORPUSCULAR VOLUME 88.8 fL (81.0-99.0); MEAN PLATELET VOLUME 9.2 fL (7.9-10.8); MONOCYTES % (AUTO) 9.3 %; NEUTROPHILS # (AUTO) 7.6 10^3/uL (1.5-6.6); NEUTROPHILS % (AUTO) 73.2 %; PLT - PLATELET COUNT 209 10^3/uL (130-450); RED BLOOD COUNT 4.93 10^6/uL (4.20-5.40); RED CELL DISTRIBUTION WIDTH 12.3 % (12.0-15.0); WHITE BLOOD COUNT 10.4 x10^3/uL (4.8-10.8)
[2023-09-15 20:09] LABS: BILIRUBIN,URINE NEGATIVE (NEGATIVE); LEUKOCYTE ESTERASE, URINE LARGE (NEGATIVE); NITRITE,URINE POSITIVE (NEGATIVE); OCCULT BLOOD,URINE SMALL (NEGATIVE)
[2023-09-15 20:17] LABS: CLARITY,URINE CLOUDY (CLEAR)
[2023-09-15 20:19] LABS: BACTERIA,URINE Many /HPF (None Seen); SQUAMOUS EPITHELIAL CELL,UR FEW Squamous (<= Few); WBC CLUMPS,URINE PRESENT; WBC,URINE >25 /HPF (0-5)
[2023-09-15 20:21] LABS: ALBUMIN 4.4 g/dL (3.2-5.5); ALBUMIN/GLOBULIN RATIO 1.3 (1.0-2.2); BILIRUBIN,TOTAL 1.6 mg/dL (0.2-1.0); CALCIUM 9.8 mg/dL (8.5-10.3); CREATININE 0.8 mg/dL (0.6-1.3); POTASSIUM 3.5 mmol/L (3.5-4.5); TOTAL PROTEIN 7.7 g/dL (6.4-8.9)
[2023-09-15] MEDS: CYCLOBENZAPRINE 10 MG TABLET PO STA (20:35)
[2023-09-15] MEDS: KETOROLAC 15 MG/ML VIAL IVP STA (20:35)
[2023-09-15] MEDS: diphenhydrAMINE INJ 50 MG/ML VIAL IVP STA (20:42)
[2023-09-15] MEDS: methylPREDNISolone SUCCINATE 125 MG/2 ML VIAL IVP STA (20:42)
[2023-09-15] MEDS ORDERED: iohexoL-300 100 ML VIAL ONE (20:48)
[2023-09-15] MEDS: iohexoL-300 100 ML VIAL IVP ONE (21:25)
[2023-09-15 22:03] VITALS: O2SAT 95
--- NOTE | 2023-09-15 22:34 | CT Report ---
PROCEDURE: Abdomen/Pelvis W INDICATIONS: right flank pain, LLQ TTP CONTRAST: 100 ML OMNI 300 TECHNIQUE: After the administration of intravenous contrast, a CT scan of the abdomen and pelvis was performed. Images were recorded and evaluated at appropriate window settings. Reformats: coronal and sagittal. F or radiation dose reduction, the following was used: automated exposure control, adjustment of mA and /or kV according to patient size. COMPARISON: 03/17/2018. FINDINGS: Image quality: Diagnostic. Lower chest: Unremarkable. Liver: No solid mass. Gallbladder and biliary tree: No radiopaque stones or wall thickening. No biliary dilation. Spleen: Mild splenomegaly. Pancreas: No pancreatic ductal dilation. Adrenals: No adrenal nodule. Kidneys and ureters: There is mild perinephric stranding of the right kidney. No hydronephrosis. No renal cystic lesion which requires follow up. No solid mass. Bilateral ureters are normal in course a nd caliber. Stomach, bowel and peritoneum: No bowel distension. No pathologic free fluid. Normal appendix. Lymph nodes: No central or retroperitoneal adenopathy. Vessels: No infrarenal aortic aneurysm. PELVIS Reproductive organs: Unremarkable. Bladder: No abnormal wall thickening, accounting for underdistention. Pelvic lymph nodes: No pelvic adenopathy by size criteria. Bones: No aggressive osseous abnormality. No acute compression fracture. Other: No significant ventral or inguinal hernia. IMPRESSION: 1. Mild right renal perinephric stranding without hydronephrosis or urolithiasis. Findings are nonspe cific and may represent senescent stranding versus an infectious/inflammatory process. Recommend clin ical and laboratory correlation. 2. Otherwise, no acute abnormalities identified in the abdomen or pelvis. Normal appendix. 3. Mild splenomegaly. Reviewed by: Bc Beltre MD on 09/15/2023 10:33 PM PST Approved by: Bc Beltre MD on 09/15/2023 10:33 PM PST Station ID: [id number]
[2023-09-15] MEDS: CIPROFLOXACIN 400 MG/200 ML 400 MG/200 ML BAG IV STA (22:49)
[2023-09-16 00:10] VITALS: BP 123/83
== END 2023-09-16 | disposition home or self-care (01) ==
LOC: ED 19:42
DX: N12 Tubulo-interstitial nephritis, not specified as acute or chronic (principal); E11.9 Type 2 diabetes mellitus without complications; Z79.84 Long term (current) use of oral hypoglycemic drugs
CPT/HCPCS: 36415; 74177; 80053; 81001; 83690; 85025; 87086; 87181; 96365; 96375; 99284; 99285; A9270; J1200; Q9967; 81003

== ENCOUNTER 2023-09-26 08:00 | Outpatient (CLI) | payer OTHER | END 2023-09-26 23:59 | disposition home or self-care (01) | LOC: LAB.WCP 08:00 | PROVIDERS: ATTEND Physician Assistant Medical | DX: N12 Tubulo-interstitial nephritis, not specified as acute or chronic (principal) | CPT/HCPCS: 87086 ==

== ENCOUNTER 2023-10-04 15:01 | Outpatient (CLI) | payer BC, OTHER ==
--- NOTE | 2023-10-04 16:03 | DEXA Report ---
PROCEDURE: Dexa Spine and/or Hip INDICATIONS: POST MENOPAUSAL TECHNIQUE: Dual energy x-ray absorptiometry (DXA) was performed on a [employer] System. Regions measur ed are the AP Spine, femoral neck, and if needed forearm. COMPARISON: None FINDINGS: Lumbar Spine: Bone Mineral Density: 1.102 g/cm/cm,T score: -0.6. Left Femoral Neck: Bone Mineral Density: 0.861 g/cm/cm, T score: -1.3. Left Hip: Bone Mineral Density: 1.008 g/cm/cm,T score: 0.0. (T score greater or equal to -1.0: NORMAL) (T score from -1.1 to -2.4: OSTEOPENIA) (T score less than or equal to -2.5 to: OSTEOPOROSIS) Impression: By WHO criteria, this patient has low bone density (osteopenia). Patients with diagnosis of osteoporosis or osteopenia should have regular bone mineral density assess ment. For those eligible for Medicare, routine testing is allowed once every 2 years. Testing frequ ency can be increased for patients who have rapidly progressing disease or for those who are receivin g medical therapy to restore bone mass. Reviewed by: Lul Haines MD on 10/04/2023 4:02 PM PST Approved by: Lul Haines MD on 10/04/2023 4:02 PM PST Station ID: [id number]
== END 2023-10-04 15:02 | disposition home or self-care (01) ==
LOC: DI 15:01
PROVIDERS: ATTEND Physician Assistant Medical
DX: Z78.0 Asymptomatic menopausal state (principal); M85.88 Other specified disorders of bone density and structure, other site

== ENCOUNTER 2023-10-07 07:25 | Outpatient (CLI) | payer BC ==
[2023-10-07 07:54] LABS: CALCIUM 9.8 mg/dL (8.5-10.3); CREATININE 0.8 mg/dL (0.6-1.3); POTASSIUM 3.9 mmol/L (3.5-4.5)
[2023-10-07 08:08] LABS: THYROID STIMULATING HORMONE 0.04 uIU/mL (0.34-5.60)
[2023-10-07 08:59] LABS: ESTIMATED AVERAGE GLUCOSE 108 mg/dL (70-100); HEMOGLOBIN A1c% 5.4 % (4.27-6.07)
== END 2023-10-07 07:26 | disposition home or self-care (01) ==
LOC: LAB 07:25
PROVIDERS: ATTEND Physician Assistant Medical
DX: E03.9 Hypothyroidism, unspecified (principal); E11.9 Type 2 diabetes mellitus without complications
CPT/HCPCS: 36415; 80048; 83036; 84439; 84443

== ENCOUNTER 2023-12-03 15:54 | Outpatient (CLI) | payer BC ==
--- NOTE | 2023-12-03 16:45 | Sleep Patient Instructions ---
Sleep Center Visit Summary - Patient Visit Information Reason for Visit: Annual follow-up - Patient Instructions Additional Instructions: You will continue with CPAP therapy with pressure set at 10-11 cmH2O. A supply prescription will be updated with your DME. We encourage you to continue to try to lose weight. Please follow up with the sleep care office in 1 year. - Clinic Information Contact: [facility] [address] [place] [address] [email or web address] T: [phone]
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
[2023-12-03 16:54] VITALS: BP 129/81; O2SAT 96
== END 2023-12-03 15:55 | disposition home or self-care (01) ==
LOC: SC 15:54
PROVIDERS: ATTEND Nurse Practitioner Family
DX: G47.33 Obstructive sleep apnea (adult) (pediatric) (principal); E66.9 Obesity, unspecified; Z68.39 Body mass index [BMI] 39.0-39.9, adult
CPT/HCPCS: 99212; 99213

== ENCOUNTER 2024-01-06 07:30 | Outpatient (CLI) | payer BC ==
[2024-01-06 08:04] LABS: CALCIUM 9.9 mg/dL (8.5-10.3); CREATININE 0.8 mg/dL (0.6-1.3); POTASSIUM 3.9 mmol/L (3.5-4.5)
[2024-01-06 12:25] LABS: ESTIMATED AVERAGE GLUCOSE 103 mg/dL (70-100); HEMOGLOBIN A1c% 5.2 % (4.27-6.07)
== END 2024-01-06 07:31 | disposition home or self-care (01) ==
LOC: LAB 07:30
PROVIDERS: ATTEND Physician Assistant Medical
DX: E11.9 Type 2 diabetes mellitus without complications (principal)
CPT/HCPCS: 36415; 80048; 83036

== ENCOUNTER 2024-01-16 16:36 | Outpatient (CLI) | payer BC ==
--- NOTE | 2024-01-17 19:29 | Ultrasound Report ---
PROCEDURE: Soft Tissue Head or Neck INDICATIONS: MULTIPLE THYROID NODULES TECHNIQUE: Real-time scanning was performed of the thyroid gland, with image documentation. COMPARISON: 12/19/2013 FINDINGS: Right: Thyroid lobe measures 4.7 x 1.3 x 1.6 cm. Left: Hemithyroidectomy Isthmus: 0.28 cm thick. Echotexture: Homogeneous. Nodule number: One Location: Right mid Size: 1.9 x 1.2 x 1.1 cm, previously 1.3 x 0.6 x 1.2 cm. Composition: Solid. Echogenicity: Isoechoic. Shape: wider than tall (0 points). Margins: Smooth (0 points). Echogenic foci: Macrocalcification. Total points: 4 ACR TI-RADS category: 4 Nodule number: Two Location: Right inferior Size: 1.3 x 1.0 x 1.4 cm cm. Composition: Solid. Echogenicity: Isoechoic. Shape: wider than tall (0 points). Margins: Smooth (0 points). Echogenic foci: None (0 points). Total points: 3 ACR TI-RADS category: 3 IMPRESSION: Relatively stable right thyroid nodules Left hemithyroidectomy ACR TI-RADS definitions and recommendations: TI-RADS 1 (benign): 0 points. FNA not needed. TI-RADS 2 (not suspicious): 2 points. FNA not needed. TI-RADS 3 (mildly suspicious): 3 points. "FNA if 2.5 cm or larger, follow up if 1.5 cm or larger (at 1, 3, and 5 years). TI-RADS 4 (moderately suspicious): 4-6 points. "FNA if 1.5 cm or larger, follow up if 1 cm or larger (at 1, 2, 3, and 5 years). TI-RADS 5 (highly suspicious): 7 points or more. "FNA if 1 cm or larger, follow up if 0.5 cm or larger (every year for 5 years). Reviewed by: Raymundo Garcia MD on 01/17/2024 6:28 PM CLIVE Approved by: Raymundo Garcia MD on 01/17/2024 6:28 PM AKDT Station ID: [id number]
== END 2024-01-16 16:37 | disposition home or self-care (01) ==
LOC: DI 16:36
PROVIDERS: ATTEND Student in an Organized Health Care Education/Training Program
DX: E04.2 Nontoxic multinodular goiter (principal)

== ENCOUNTER 2024-01-26 17:18 | Emergency (ER) | payer BC ==
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
[2024-01-26] MEDS: KETOROLAC 60 MG/2 ML VIAL IM STA (17:59)
[2024-01-26] MEDS: HYDROmorphone 0.5 MG/0.5 ML SYRINGE IM STA (18:32)
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
[2024-01-26] MEDS: HYDROmorphone 1 MG/ML CARPUJECT IM STA (18:44)
[2024-01-26] MEDS: HYDROmorphone 0.5 MG/0.5 ML SYRINGE IVP STA (18:45)
[2024-01-26 19:38] VITALS: BP 109/74; O2SAT 100
== END 2024-01-26 19:40 | disposition home or self-care (01) ==
LOC: ED 17:18
DX: S42.212A Unspecified displaced fracture of surgical neck of left humerus, initial encounter for closed fracture (principal); V18.4XXA Pedal cycle driver injured in noncollision transport accident in traffic accident, initial encounter; Y93.55 Activity, bike riding; E78.00 Pure hypercholesterolemia, unspecified; E11.9 Type 2 diabetes mellitus without complications; E03.9 Hypothyroidism, unspecified; Z87.442 Personal history of urinary calculi; Z87.898 Personal history of other specified conditions; Z79.84 Long term (current) use of oral hypoglycemic drugs; Z79.899 Other long term (current) drug therapy
CPT/HCPCS: 73030; 96372; 96374; 96375; 99283; 99284; J1170

== ENCOUNTER 2024-04-06 07:27 | Outpatient (CLI) | payer BC ==
[2024-04-06 07:52] LABS: CREATININE 0.8 mg/dL (0.6-1.3); POTASSIUM 3.7 mmol/L (3.5-4.5)
[2024-04-06 11:51] LABS: ESTIMATED AVERAGE GLUCOSE 103 mg/dL (70-100); HEMOGLOBIN A1c% 5.2 % (4.27-6.07)
== END 2024-04-06 07:28 | disposition home or self-care (01) ==
LOC: LAB 07:27
PROVIDERS: ATTEND Physician Assistant Medical
DX: E11.9 Type 2 diabetes mellitus without complications (principal)
CPT/HCPCS: 36415; 80048; 83036